=== PATIENT | male | born 1955 | race Caucasian/White ===

== ENCOUNTER 2016-09-24 07:03 | Emergency (ER) | payer BC ==
[2016-09-24 07:12] VITALS: BP 141/79
--- NOTE | 2016-09-24 07:21 | UC ---
Respiratory Complaint HPI - HPI Summary HPI Summary: cough off and on for 2 months, seen by PCP, treated with antibiotic and Robitussin, no relief, second visit prescribed Z-Pack, continues to cough. Right ear pain, "full" feeling. no fevers, some wheezing. had pneumonia last yr , doesnt feel like that. found left over albuterol inhaler that eh started using with relief temporarily. h/o sinus surgery adn uses saline rinses daily. ex-smoker. quit 1989. + h/o CAD. - History of Current Complaint Chief Complaint: UCGeneralIllness Stated Complaint: COUGH Time Seen by Provider: 09/24/16 07:19 - Allergies/Home Medications Allergies/Adverse Reactions: Allergies Allergy/AdvReac Type Severity Reaction Status Date / Time Amoxicillin [From Amoxil] Allergy Severe I FELT Verified 09/24/16 07:12 LIKE I WAS DYING Latex Allergy BANDAIDS - Verified 09/24/16 07:12 RASH Home Medications: Home Medications Nebivolol HCl [Bystolic] 5 mg PO DAILY 09/24/16 [History Confirmed 09/24/16] PMH/Surg Hx/FS Hx/Imm Hx Previously Healthy: Yes Cardiovascular History Of: Reports: Cardiac Disorders - a fib, Hypertension, Atrial Fibrillation, Deep Vein Thrombosis - aug 2013 Respiratory History Of: Reports: Pulmonary Embolism - DVT RIGHT LOWER LEG, 2 SMALL ONES IN THE LUNGS,2013 ON XARELTO Psychological History Of: Reports: Depression - on Cymbalta - Surgical History Surgical History: Yes Surgery Procedure, Year, and Place: HERNIA REPAIR 1982; sinus polyp removed~ 2011. bicep tendon repair right arm 2014 - Family History Known Family History: Positive: Cardiac Disease - Dad and brothers., Respiratory Disease - Dad with COPD. - Social History Alcohol Use: Occasionally Alcohol Amount: WEEKENDS Substance Use Type: None Substance Use Comment - Amount & Last Used: tramodol Smoking Status (MU): Former Smoker Type: Cigarettes Amount Used/How Often: 2 PPD / CURRENTLY CHEWING TOBACCO Length of Time of Smoking/Using Tobacco: 40 yrs Have You Smoked in the Last Year: No When Did the Patient Quit Smoking/Using Tobacco: 1989 - Immunization History Most Recent Influenza Vaccination: 2012 Most Recent Tetanus Shot: 2009 Most Recent Pneumonia Vaccination: never Review of Systems Constitutional: Negative Skin: Negative Eyes: Negative ENT: Ear Ache Respiratory: Cough Cardiovascular: Negative Gastrointestinal: Negative Genitourinary: Negative Motor: Negative Neurovascular: Negative Musculoskeletal: Negative Neurological: Negative Psychological: Negative All Other Systems Reviewed And Are Negative: Yes Physical Exam Triage Information Reviewed: Yes Appearance: Well-Appearing - no cough during encounter. very pleasant., No Pain Distress, Well-Nourished Vital Signs: Initial Vital Signs Temp 97.8 F 09/24/16 07:06 Pulse 92 09/24/16 07:06 Resp 18 09/24/16 07:06 BP 141/79 09/24/16 07:06 Pulse Ox 100 09/24/16 07:06 Vital Signs Reviewed: Yes Eyes: Positive: Conjunctiva Clear ENT: Positive: Pharynx normal, TMs normal. Negative: TM bulging, TM dull, TM red Dental Exam: Normal Neck exam: Normal Neck: Positive: Supple, Nontender, No Lymphadenopathy Respiratory: Positive: Chest non-tender, No respiratory distress, No accessory muscle use, Decreased breath sounds, Wheezing - right > left. Negative: Crackles, Rhonchi, Stridor Cardiovascular: Positive: No Murmur, Pulses Normal, Brisk Capillary Refill, Other: - irregularly, irregular Abdomen Description: Positive: Nontender, Soft Bowel Sounds: Positive: Present Musculoskeletal Exam: Normal Neurological Exam: Normal Psychological Exam: Normal Skin Exam: Normal UC Diagnostic Evaluation - Laboratory O2 Sat by Pulse Oximetry: 100 Respiratory Course/Dx - Course Course Of Treatment: CXR - NAD. We discusse risks of prednisone including but not limited to anxiety, agitation, insomnia, GI upset, elevated blood pressures and blood sugar readings, adrenal crisis and avascular necrosis of the hip. He has been on this before and agrees with meds. - Differential Dx/Diagnosis Differential Diagnosis/HQI/PQRI: Bronchitis, Other - pneumonia. copd Provider Diagnoses: Bronchitis Discharge - Discharge Plan Condition: Stable Disposition: HOME Prescriptions: Albuterol HFA INHALER* [Ventolin HFA Inhaler*] 2 puff INH Q4H PRN #1 mdi PRN Reason: Cough Methylprednisolone [Medrol Dosepak 4 MG*] 4 mg PO DAILY #1 artem Patient Education Materials: Acute Bronchitis (ED) Referrals: Glenn Hewitt MD [Primary Care Provider] - Additional Instructions: We discussed need for the albuterol; inhaler every 4-6 hrs as needed for cough until symptoms resolve. prednisone will also help the inflammation/restriction in your lungs that is causing the cough. Consideration to a breathing test to test your for COPD should be given by your PCP. I also recommend that you stop chewing tobacco as well.
--- NOTE | 2016-09-24 07:46 | RAD ---
HISTORY: Cough, wheezing COMPARISONS: October 28, 2014 VIEWS: 2: Frontal dual-energy and lateral views of the chest. FINDINGS: CARDIOMEDIASTINAL SILHOUETTE: The cardiomediastinal silhouette is normal. SEBAS: The sebas are normal. PLEURA: The costophrenic angles are sharp. No pleural abnormalities are noted. LUNG PARENCHYMA: The lungs are clear. ABDOMEN: The upper abdomen is clear. There is no subphrenic gas. BONES AND SOFT TISSUES: Degenerative changes are noted along the spine. OTHER: None. IMPRESSION: NO ACTIVE CARDIOPULMONARY DISEASE.
== END 2016-09-24 07:58 | disposition home or self-care (01) ==
LOC: UCCORT 07:03
DX: J40 Bronchitis, not specified as acute or chronic (principal); Z88.1 Allergy status to other antibiotic agents; I48.91 Unspecified atrial fibrillation; Z86.718 Personal history of other venous thrombosis and embolism; Z86.711 Personal history of pulmonary embolism; Z79.01 Long term (current) use of anticoagulants; I10 Essential (primary) hypertension; F32.9 Major depressive disorder, single episode, unspecified; F17.220 Nicotine dependence, chewing tobacco, uncomplicated
CPT/HCPCS: 71020; 99212; G0463

== ENCOUNTER 2017-12-03 10:22 | Emergency (ER) | payer BC ==
--- NOTE | 2017-12-03 10:45 | UC ---
General HPI - HPI Summary HPI Summary: Patient presents to urgent care reporting 2 days noticed at the end of his breathing he feels a "bubbly noise "in his breathing. Patient states he feels like there is congestion in his left lung. No shortness of breath. No fevers or chills. No chest pain. No nausea or vomiting. She was slight nonproductive cough. No rash. Patient does not have a history of tobacco use. Patient is lung disease. Patient does have a history of atrial fibrillation and pulmonary embolism. Patient is currently on daily Xarelto and has not missed any doses. Patient states his PE was diagnosed many years ago. 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 Patient states he had pneumonia several years ago but this feels different. Patient does not endorse any pain in his abdomen or his extremities. Patient does not have a history of CHF. Patient is not on any diuretic or hydrochlorothiazide. Pt with normal cardiac stress test in 2010 Patient's medications reviewed this visit. - History of Current Complaint Stated Complaint: CHEST HEAVINESS,CONGESTION Time Seen by Provider: 12/03/17 10:26 Hx Obtained From: Patient Onset/Duration: Gradual Onset Timing: Constant Onset Severity: Mild Current Severity: Mild - Allergy/Home Medications Allergies/Adverse Reactions: Allergies Allergy/AdvReac Type Severity Reaction Status Date / Time adhesive tape Allergy Rash Verified 12/03/17 10:38 amoxicillin Allergy See Comment Verified 12/03/17 10:38 latex Allergy Rash Verified 12/03/17 10:38 Home Medications: Home Medications Escitalopram Oxalate [Lexapro 10 mg] 10 mg PO DAILY 12/03/17 [History Confirmed 12/03/17] Hydroxychloroquine TAB* [Plaquenil TAB*] 200 mg PO DAILY 12/03/17 [History Confirmed 12/03/17] PMH/Surg Hx/FS Hx/Imm Hx Previously Healthy: Yes Endocrine History: Dyslipidemia Cardiovascular History: Hypertension, Atrial Fibrillation - Surgical History Surgical History: Yes Surgery Procedure, Year, and Place: HERNIA REPAIR 1982; sinus polyp removed~ 2011. bicep tendon repair right arm 2014 - Family History Known Family History: Positive: Cardiac Disease - Dad and brothers., Respiratory Disease - Dad with COPD. - Social History Occupation: Employed Full-time Lives: With Family Alcohol Use: Occasionally Alcohol Amount: WEEKENDS Substance Use Type: None Substance Use Comment - Amount & Last Used: tramodol Smoking Status (MU): Former Smoker Type: Cigarettes Amount Used/How Often: 2 PPD / CURRENTLY CHEWING TOBACCO Length of Time of Smoking/Using Tobacco: 40 yrs Have You Smoked in the Last Year: No When Did the Patient Quit Smoking/Using Tobacco: 1989 - Immunization History Most Recent Influenza Vaccination: 2012 Most Recent Tetanus Shot: 2009 Most Recent Pneumonia Vaccination: never Review of Systems Constitutional: Negative Skin: Negative Eyes: Negative Respiratory: Cough, Other - wheeze All Other Systems Reviewed And Are Negative: Yes Physical Exam - Summary Physical Exam Summary: Vital Signs Reviewed: Yes Eyes: Conjunctiva Clear, BILLY. EOM intact and full ENT: Hearing grossly normal TM x 2 clear, mmoist, uvula midline, no exudate, no erythema Neck: Positive: Supple Respiratory: Positive: No respiratory distress, No accessory muscle use + BS throughout pt with end exp wheeze left Cardiovascular: RRR nl s1, s2 no m/r CBT <2 sec Musculoskeletal Exam: JHAVERI x 4 without difficulty Strength Intact, ROM Intact, Og Neurological: Positive: Alert, Other: - + sensation throughout Psychological: Positive: Normal Response To Family Skin: Positive: no rash,, no ecchymosis Triage Information Reviewed: Yes Diagnostics - Radiology No standard instances Xray Interpretation: Positive (See Comments) - Patient Name: WILLIAM JACQUES Medical Record#: [id number] Ordering Physician: Pamela Bello MD Acct.#: [id number] : 1955 Age: 62 Sex: M Location: [facility] Exam Date: 12/03/17 1051 ADM Status: REG ER Order Information: CHEST PA & LAT 2 VWS Accession Number: [id number] CPT: 17143 INDICATION: LEFT chest discomfort for several days. Congestion. History of atrial fibrillation. Former tobacco use. COMPARISON: September 24, 2016 TECHNIQUE: Dual energy PA and routine lateral views of the chest were obtained. REPORT: Alveolar consolidation at the LEFT upper lobe new compared with the prior exam. Elevated lung volumes. Negative for pleural effusion or pneumothorax. The heart, pulmonary vasculature, and mediastinal contours are unremarkable. IMPRESSION: LEFT upper lobe airspace consolidation most suspicious for pneumonia given the clinical context however interval follow -up after therapy warranted to assess for resolution and exclude an underlying mass lesion. If the clinical context is not suspicious for pneumonia then consider contrast-enhanced chest CT to assess for LEFT upper lobe mass at this time. < Electronically signed by Blayne Farmer MD in [place]> 12/03/17 1112 Dictated By: Blayne Farmer MD Dictated Date/Time: 12/03/17 1112 Transcribed Date/Time: 08/21 1109 Copy to: CC:Pamela Bello MD; Glenn Hewitt MD Imaging - [facility] Imaging - [facility] Imaging - [facility] [address] [place] [id number] [address] [address] ph ([phone]) ph [phone]) ph ([phone]) 1 of 1 Radiology Interpretation Completed By: Radiologist Re-Evaluation - Re-Evaluation First Eval Re-Evaluation Time: 11:24 Change: Improved - Pt states improved with neb wheezing resolved + BS throughout wheeze resolved reviewed CXR with pt - alexa tx for pna, abx, mdi with spacer recheck pcp for reimaging return precautions pt in agreement with plan Course/Dx - Course Course Of Treatment: Patient with 2 days of progressive and expiratory wheeze. Patient states feels when he calls a "pop" in his lungs. Patient denies any other complaints. On exam patient with an respiratory wheezing. We'll check a chest x-ray. If evidence of CHF with respiratory further evaluation. If no CHF will give DuoNeb and reassessed the patient comfortable and agreeable with plan. - Differential Dx - Multi-Symptom Provider Diagnoses: MYNOR PNA Discharge - Sign-Out/Discharge Documenting (check all that apply): Discharge/Admit/Transfer - Discharge Plan Condition: Stable Disposition: HOME Prescriptions: Albuterol HFA INHALER* [Ventolin HFA Inhaler*] 1 puff INH Q4H PRN #1 mdi PRN Reason: wheeze DOXYcycline CAP(*) [DOXYcycline 100MG CAP(*)] 100 mg PO BID #20 cap Spacer/Holding Chamber (NF) [Easivent CHAMBER (NF)] 1 mis PO Q4HR #1 mis Patient Education Materials: Pneumonia (ED) Referrals: Glenn Hewitt MD [Primary Care Provider] - Additional Instructions: - Take antibiotics exactly as prescribed until gone -Use your albuterol puffer - 2 puffs ever 4 hours for the next 2 days - then every 4 hours as needed -Stay well hydrated - avoid excess caffeine and all alcohol -These infections are spread by oral secretions. Do not share eating or drinking utensils. Frequent hand washing is important. Clean items that may get your secretions on them such as cell phones, ipads, computer mouse, television remotes. Once you have been on antbiotics for 2 days, change your pillowcase and your toothbrush - eat regular, healthy meals -Contact your doctor to arrange a follow-up appointment this week. Call your doctor, return here or go to the emergency department with any questions or concerns. As discussed, you should have a follow-up chest radiograph after you complete your antibiotics to make sure your chest xray has improved. - Billing Disposition and Condition Condition: STABLE Disposition: HOME
[2017-12-03 10:51] VITALS: BP 144/94
[2017-12-03] MEDS ORDERED: Albuterol/Ipratropium NEB.SOL* Albuterol 2.5 MG/Ipratropium 0.5 MG 3 ML INH ONE (10:51)
--- NOTE | 2017-12-03 11:15 | RAD ---
INDICATION: LEFT chest discomfort for several days. Congestion. History of atrial fibrillation. Former tobacco use. COMPARISON: September 24, 2016 TECHNIQUE: Dual energy PA and routine lateral views of the chest were obtained. REPORT: Alveolar consolidation at the LEFT upper lobe new compared with the prior exam. Elevated lung volumes. Negative for pleural effusion or pneumothorax. The heart, pulmonary vasculature, and mediastinal contours are unremarkable. IMPRESSION: LEFT upper lobe airspace consolidation most suspicious for pneumonia given the clinical context however interval follow-up after therapy warranted to assess for resolution and exclude an underlying mass lesion. If the clinical context is not suspicious for pneumonia then consider contrast-enhanced chest CT to assess for LEFT upper lobe mass at this time.
== END 2017-12-03 11:51 | disposition home or self-care (01) ==
LOC: UCCORT 10:22
DX: J18.9 Pneumonia, unspecified organism (principal); I48.91 Unspecified atrial fibrillation; I26.99 Other pulmonary embolism without acute cor pulmonale; I10 Essential (primary) hypertension; Z88.0 Allergy status to penicillin; Z91.09 Other allergy status, other than to drugs and biological substances; Z79.01 Long term (current) use of anticoagulants; Z91.040 Latex allergy status; Z87.891 Personal history of nicotine dependence
CPT/HCPCS: 71046; 93005; 99212; A9270-GY; G0463

== ENCOUNTER 2018-12-18 09:00 | Emergency (ER) | payer BC ==
--- OUTSIDE RECORDS SUMMARY | 2018-12-18 09:17 | XMS REPORT | Continuity of Care Document ---
:1955 External Reference #:[id number] Author Name Lawanda He Care Team Providers Name Role Phone Glenn Hewitt MD Primary Care Physician Unavailable Payers Date Identification Numbers Payment Provider Subscriber Effective: 2011 Policy Number: [id number] [employer]ets Lillian Moreno PayID: [id number] [address] [address] [place] [address] Problems Active Problems Provider Date Displacement of lumbar intervertebral disc Volodymyr Menezes M.D. Onset: without myelopathy Sciatica Volodymyr Menezes M.D. Onset: 07/18/2013 Nasal polyp Papi Long M.D. Onset: 08/30/2013 Chronic maxillary sinusitis Papi Long M.D. Onset: 08/30/2013 Spinal stenosis of lumbar region Ronan Shea M.D. Onset: 12/15/2016 Idiopathic peripheral neuropathy Ronan Shea M.D. 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 Cigarette Use Quit - Age 34 ETOH Use Denies alcohol use Recreational Drug Use Denies Drug Use Tobacco Use Start: Unknown End: Patient is a former smoker Unknown Tobacco Use Start: Unknown Chews tobacco Smoking Status Reviewed: 11/28/18 Chews tobacco Exercise Type/Frequency Does not exercise Allergies, Adverse Reactions, Alerts Active Allergies Reaction Severity Comments Date Amoxicillin 07/18/2013 Augmentin 07/18/2013 Neurontin odd feeling 12/15/2016 Inactive Allergies NKDA 09/02/2009 Medications Active Medications SIG Qnty Indications Ordering Date Provider Hydroxychloroquine Take 2 Tablets 180tabs Papi Geraldo, 12/29/2017 Sulfate By Mouth Every M.D. 200mg Tablets Day Ongoing Capsaicin apply twice 60gm Papi Chow, 07/05/2017 0.025% Cream daily for M.D. local pain Multivitamins 1 capsule 30caps Unknown Capsules beverly;y Zolpidem Tartrate 1/2-1 tab po 20tabs Unknown 10mg Tablets qhs prn Xarelto 1 by mouth qd Unknown 20mg Tablets Atorvastatin Calcium 1 by mouth Unknown 10mg every day Tablets Co Q 10 1 by mouth Unknown 10mg Capsules every day Tramadol HCL 1-2 tablets Unknown 50mg Tablets every 6 hours as needed Bystolic Unknown 20mg Tablets Ultra Move Free Unknown Fluticasone Propionate Niziol, MD Glenn 50mcg/Act Suspension History Medications Plaquenil 2 by mouth daily 60tabs Papi Chow, 07/27/2017 - 200mg Tablets ongoing M.D. 12/29/2017 Doxycycline Hyclate 1 tab by mouth 8caps Francisco Toledo, 06/21/2017 - 100mg twice a day M.D. 07/05/2017 Capsules Percocet 1-2 by mouth 10tabs Francisco Toledo, 09/16/2015 - 5-325mg Tablets every 4-6 hours M.D. 12/12/2016 as needed for pain Doxycycline Hyclate 1 tab by mouth 28caps Francisco Toledo, 09/16/2015 - 100mg twice a day M.D. 12/13/2016 Capsules Doxycycline Hyclate 1 tab by mouth 20tabs Unknown 02/25/2015 - 100mg twice a day for 03/04/2015 Tablets 10 days Doxycycline Hyclate 1 tab by mouth 20caps Francisco Toledo, 02/25/2015 - 100mg twice a day M.D. 03/04/2015 Capsules Doxycycline Hyclate 1 tab by mouth 20caps Francisco Toledo, 07/16/2014 - 100mg twice a day M.DJanuary 02/24/2015 Capsules Medrol medrol dosepack 1pack Francisco Paris, 07/16/2014 - 4mg Tablets as directed M.D. 02/24/2015 Azelastine HCL 2 sprays to each 1Month Francisco Toledo, 02/12/2014 - nostril twice a M.D. 12/12/2016 137mcg/[place] Solution day Lyrica 3 - 6 caps by 180capbernabe Medina 09/24/2013 - 50mg Capsules mouth every night Bindu Coombs 12/13/2016 as directed [facility] Papi 08/30/2013 - 5mg Tablets 7 days, 20 mg for Matthewinger, 09/11/2013 4 days, 10 mg M.D. for 4 days, then 5 mg a day Doxycycline 1 po bid with 28caps 471.0 Papi 08/30/2013 - Monohydrate food and [facility] 09/15[facility]2013 100mg sunlight M.D. Capsules Lyrica 3 - 6 caps by 180savage Medina 08/06/2013 - 50mg Capsules mouth every night Bindu Coombs 08/30/2013 as directed Ativan 1/2-1 tab by 30taguicho Medina 05/02/2013 - 1mg Tablets mouth as needed Bindu Coombs 07/17/2013 Cymbalta 1-2 tab by mouth 180savage Medina 05/02/2013 - 30mg Caps DR every day as Bindu Coombs 08/21/2013 Part directed Quetiapine Fumarate 3-4 tabs po hs as 120taguicho Medina 03/26/2013 - 25mg directed Bindu Coombs 05/02/2013 Tablets Metoprolol Succinate 1 po qd 90tabs Asherlast Pierson 01/01/2013 - ER Bindu Stoner, 12/13/2016 100mg Tablets ER 24HR FACC, FASNC Verapamil HCL CR 1 po qd 90tabs Asher Pierson 01/01/2013 - 240mg Bindu Stoner, 12/13/2016 Tablets ER FACC, FASNC Ofloxacin 4 drops to 15ml Francisco Toledo, 08/29/2012 - 0.3% Solution affected ear M.DJanuary 07/17/2013 twice a day for 5 days Medrol Dosepak take as directed 1phsaryn Toledo, 06/13/2012 - 4mg M.DJanuary 07/11/2012 Tablets Fluticasone Propionate 2 puffs each 1month Francisco Toledo, 06/13/2012 - nostril daily M.DJanuary 07/17/2013 50mcg/Act Suspension Prednisone one p.o. once a 10days 473.0 [facility] 09/27/2011 - 20mg Tablets day in a.m. x10 Bindu Mistry 11/23/2011 days Vicodin 2 p.o. q.6 h. 30tabs 473.0 [facility] 09/27/2011 - 5-500mg Tablets p.r.n. Bindu Mistry 11/23/2011 Gabapentin 1 po qid and 120capbernabe Araujo 02/24/2011 - 300mg Capsules increase Bindu Menezes 08/29/2012 gradually up to 6 capsules per day if needed to control symptoms Fluticasone Propionate 2 puffs each 1month Francisco Toledo 12/01/2010 - nostril daily Vira.Aneta 08/29/2012 50mcg/Act Suspension Gabapentin 1 po qhs to start 90capbernabe Araujo 11/25/2010 - 100mg Capsules and may increase Bindu Menezes 02/24/2011 as tolerated to 2 po qhs then 1 po qam and 2 po hs, gradually up to 3 tid prn pain Aspir-81 1 po qd Francisco Toledo 01/13/2010 - 81mg Tablets DR Ruano 09/01/2013 Tramadol HCL qid prn 120tabs Francisco Toledo 01/13/2010 - 50mg Tablets Vira.DJanuary 07/17/2013 Clarithromycin Niziol, - 500mg MD Glenn 03/29/2018 Tablets Ultram one tablet every Unknown - 50mg Tablets 8 hours as needed 12/14/2016 for pain orally Lyrica 1 by mouth twice Unknown - 25mg Capsules a day 07/27/2017 Cymbalta 1 by mouth every Unknown - 60mg Caps DR day- will stop 12/15/2016 Part 12/18/16 Montelukast Sodium 1 po qd 90tabs Unknown - 10mg 12/13/2016 Tablets Nasonex 2 sprays to each 1units Unknown - 50mcg/Act nostril once 12/13/2016 Suspension daily Verapamil HCL ER 1 po qd 30caps Unknown - 240mg 11/25/2015 Caps ER 24HR Warfarin Sodium 1 tab by mouth 90tabs Unknown - 6mg every day as 11/25/2015 Tablets directed Biaxin 1 po bid 28tabs Unknown - 500mg Tablets 09/18/2013 Bactrim DS 1 po bid for 7 14tabs Francisco Toledo, - 800-160mg days M.D. 07/17/2013 Tablets Mucinex bid prn 30tabs Unknown - 600mg Tablets ER 07/17/2013 12HR Amoxicillin 2 bid for 10 days 40caps Unknown - 500mg 08/29/2012 Capsules Verapamil HCL CR Unknown - 240mg 01/01/2013 Prednisone weaning Unknown - 20mg 01/13/2010 dose Hydrocodone Unknown - 07/17/2013 Metoprolol Unknown - 01/01/2013 Warfarin Sodium Unknown - 01/13/2010 Cefdinir Unknown - 01/13/2010 Immunizations CPT Code Status Date Vaccine Reaction Lot # [id number] Given 03/29/2018 Influenza Virus Vaccine, No immediate reaction [id number] Quadrivalent, Split, noted Preservative Free Vital Signs Date Vital Result Comment 11/28/2018 8:52am Height 69 inches 5'9" Weight 212.50 lb Heart Rate 97 /min BP Systolic 128 mmHg BP Diastolic 82 mmHg Pain Level 1 O2 % BldC Oximetry 98 % BMI (Body Mass Index) 31.4 kg/m2 03/29/2018 8:58am Height 69 inches 5'9" Weight 205.00 lb Heart Rate 78 /min BP Systolic Sitting 126 mmHg BP Diastolic Sitting 82 mmHg Respiratory Rate 14 /min Pain Level 2 BMI (Body Mass Index) 30.3 kg/m2 09/27/2017 9:34am Height 69 inches 5'9" Weight 210.00 lb Heart Rate 80 /min BP Systolic Sitting 148 mmHg BP Diastolic Sitting 96 mmHg Respiratory Rate 14 /min Pain Level 2 BMI (Body Mass Index) 31.0 kg/m2 07/27/2017 4:22pm Height 69 inches 5'9" Weight 220.00 lb Heart Rate 82 /min BP Systolic Sitting 144 mmHg BP Diastolic Sitting 99 mmHg Respiratory Rate 14 /min Pain Level 5 BMI (Body Mass Index) 32.5 kg/m2 07/05/2017 9:56am Height 69 inches 5'9" Weight 217.00 lb Heart Rate 82 /min BP Systolic Sitting 142 mmHg BP Diastolic Sitting 97 mmHg Respiratory Rate 14 /min Pain Level 4 BMI (Body Mass Index) 32.0 kg/m2 06/21/2017 2:59pm Height 69 inches 5'9" Weight 200.00 lb Heart Rate 72 /min BP Systolic Sitting 140 mmHg BP Diastolic Sitting 72 mmHg Respiratory Rate 12 /min Pain Level 0 BMI (Body Mass Index) 29.5 kg/m2 12/15/2016 2:33pm Height 69 inches 5'9" Weight 215.00 lb Heart Rate 85 /min BP Systolic 122 mmHg BP Diastolic 84 mmHg Respiratory Rate 17 /min Pain Level 5 O2 % BldC Oximetry 98 % Ra BMI (Body Mass Index) 31.7 kg/m2 04/27/2016 2:52pm Height 69 inches 5'9" Weight 220.00 lb BP Systolic 130 mmHg BP Diastolic 74 mmHg BMI (Body Mass Index) 32.5 kg/m2 11/26/2015 8:04am Height 69 inches 5'9" Weight 220.00 lb Heart Rate 80 /min BP Systolic Sitting 130 mmHg BP Diastolic Sitting 84 mmHg BMI (Body Mass Index) 32.5 kg/m2 09/30/2015 2:02pm Heart Rate 72 /min BP Systolic Sitting 122 mmHg BP Diastolic Sitting 82 mmHg 09/16/2015 1:37pm Heart Rate 76 /min BP Systolic Sitting 128 mmHg BP Diastolic Sitting 88 mmHg 09/02/2015 1:34pm Heart Rate 78 /min BP Systolic Sitting 128 mmHg BP Diastolic Sitting 88 mmHg 02/25/2015 1:58pm Heart Rate 78 /min BP Systolic Sitting 124 mmHg BP Diastolic Sitting 80 mmHg 07/16/2014 3:11pm Heart Rate 76 /min BP Systolic Sitting 122 mmHg BP Diastolic Sitting 84 mmHg Body Temperature 98.6 F 04/30/2014 1:08pm Heart Rate 88 /min BP Systolic Sitting 128 mmHg BP Diastolic Sitting 88 mmHg 02/12/2014 1:05pm Heart Rate 88 /min BP Systolic Sitting 140 mmHg BP Diastolic Sitting 90 mmHg 10/09/2013 3:42pm Heart Rate 78 /min BP Systolic Sitting 120 mmHg BP Diastolic Sitting 82 mmHg Body Temperature 99.8 F 08/30/2013 11:13am Weight 226.00 lb Heart Rate 88 /min BP Systolic Sitting 132 mmHg BP Diastolic Sitting 80 mmHg 09/02/2009 2:26pm Heart Rate 88 /min BP Systolic Sitting 120 mmHg BP Diastolic Sitting 80 mmHg Results Test Date Facility Test Result H/L Range Note Laboratory test 03/29/2018 [facility] Erythrocyte Sed <pending> finding [address] [place] [address] [phone] C Reactive Protein <pending> Laboratory test 03/10/2018 [facility] Erythrocyte Sed 0 mm/Hr N 0-20 [address] [place] [address] [phone] C Reactive Protein 1.19 mg/L N <8.01 2 CBC Auto Diff 03/10/2018 [facility] White Blood 8.6 10^3/uL N 3.5-10.[address] [place] [address] [phone] Red Blood Count 4.66 10^6/uL N 4.00-5.40 Hemoglobin 14.4 g/dL N 14.0-18.0 Hematocrit 42 % N 42-52 Mean Corpuscular Volume 91 fL N 80-94 Mean Corpuscular Hemoglobin 31 pg N 27-31 Mean Corpuscular HGB Conc 34 g/dL N 31-36 Red Cell Distribution Width 14 % N 10.5-15 Platelet Count 237 10^3/uL N 150-450 Mean Platelet Volume 7.4 um3 N 7.4-10.4 Abs Neutrophils 5.2 10^3/uL N 1.5-7.7 Abs Lymphocytes 2.1 10^3/uL N 1.0-4.8 Abs Monocytes 0.8 10^3/uL N 0-0.8 Abs Eosinophils 0.5 10^3/uL N 0-0.6 Abs Basophils 0.1 10^3/uL N 0-0.2 Abs Nucleated RBC 0.1 10^3/uL Granulocyte % 60.3 % N 38-83 Lymphocyte % 24.0 % Low 25-47 Monocyte % 8.9 % High 0-7 Eosinophil % 6.1 % High 0-6 Basophil % 0.7 % N 0-2 Nucleated Red Blood Cells % 0.8 Comp Metabolic Panel 03/10/2018 [facility] Sodium 142 mmol/L N 135-[address] [place] [address] [phone] Potassium 4.2 mmol/L N 3.5-5.0 Chloride 106 mmol/L N 101-111 Co2 Carbon Dioxide 30 mmol/L N 22-32 Anion Gap 6 mmol/L N 2-11 Glucose 102 mg/dL High 70-100 Blood Urea Nitrogen 12 mg/dL N 6-24 Creatinine 0.94 mg/dL N 0.67-1.17 BUN/Creatinine Ratio 12.8 N 8-20 Calcium 9.2 mg/dL N 8.6-10.3 Total Protein 6.4 g/dL N 6.4-8.9 Albumin 4.3 g/dL N 3.2-5.2 Globulin 2.1 g/dL N 2-4 Albumin/Globulin Ratio 2.0 N 1-3 Total Bilirubin 0.90 mg/dL N 0.2-1.0 Alkaline Phosphatase 44 U/L N 34-104 Alt 29 U/L N 7-52 Ast 23 U/L N 13-39 Egfr Non- 81.9 >60 Egfr 99.1 >60 3 Laboratory test 09/23/2017 [facility] Erythrocyte Sed 0 mm/Hr N 0-20 [address] [place] [address] [phone] C Reactive Protein < 1.00 mg/L N < 5.00 5 CBC Auto Diff 09/23/2017 [facility] White Blood 6.9 10^3/uL N 3.5-10.[address] [place] [address] [phone] Red Blood Count 4.65 10^6/uL N 4.0-5.4 Hemoglobin 14.6 g/dL N 14.0-18.0 Hematocrit 42 % N 42-52 Mean Corpuscular Volume 91 fL N 80-94 Mean Corpuscular Hemoglobin 31 pg N 27-31 Mean Corpuscular HGB Conc 35 g/dL N 31-36 Red Cell Distribution Width 13 % N 10.5-15 Platelet Count 230 10^3/uL N 150-450 Mean Platelet Volume 8.1 um3 N 7.4-10.4 Abs Neutrophils 4.4 10^3/uL N 1.5-7.7 Abs Lymphocytes 1.4 10^3/uL N 1.0-4.8 Abs Monocytes 0.6 10^3/uL N 0-0.8 Abs Eosinophils 0.3 10^3/uL N 0-0.6 Abs Basophils 0.1 10^3/uL N 0-0.2 Abs Nucleated RBC 0 10^3/uL Granulocyte % 64.4 % N 38-83 Lymphocyte % 20.7 % Low 25-47 Monocyte % 8.0 % High 0-7 Eosinophil % 4.8 % N 0-6 Basophil % 2.1 % High 0-2 Nucleated Red Blood Cells % 0 Comp Metabolic Panel 09/23/2017 [facility] Sodium 139 mmol/L N 133-[address] [place] [id number] [phone] Potassium 4.0 mmol/L N 3.5-5.0 Chloride 103 mmol/L N 101-111 Co2 Carbon Dioxide 30 mmol/L N 22-32 Anion Gap 6 mmol/L N 2-11 Glucose 106 mg/dL High 70-100 Blood Urea Nitrogen 12 mg/dL N 6-24 Creatinine 1.06 mg/dL N 0.67-1.17 BUN/Creatinine Ratio 11.3 N 8-20 Calcium 9.4 mg/dL N 8.6-10.3 Total Protein 6.5 g/dL N 6.4-8.9 Albumin 4.5 g/dL N 3.2-5.2 Globulin 2.0 g/dL N 2-4 Albumin/Globulin Ratio 2.3 N 1-3 Total Bilirubin 0.80 mg/dL N 0.2-1.0 Alkaline Phosphatase 37 U/L N 34-104 Alt 26 U/L N 7-52 Ast 19 U/L N 13-39 Egfr Non- 71.3 >60 Egfr 91.7 >60 6 Cardiolipin 07/05/2017 [facility] Phospholipid Ab < 9.4 MPL 7 Igg/Igm IgM, [place] [address] [phone] Phospholipid Ab IgG < 9.4 GPL 8 Jerica Igg AB Reflex 07/05/2017 [facility] SS-A/Ro Antibody <0.2 U 9 [place] [address] [phone] SS-B/La Antibody <0.2 U 10 Sm (Grewal) IgG Antibody <0.2 U 11 U1-nRNP Antibody <0.2 U 12 Scl-70 (Scleroderma) Antibody <0.2 U 13 Aleida-1 Antibody <0.2 U 14 Laboratory test 07/05/2017 [facility] TSH (Thyroid 1.79 mcIU/mL N 0.34-5.60 finding Stim Horm) [place] [address] [phone] Hla B27 07/05/2017 [facility] Hla B27 Negative 15 [place] [address] [phone] Hla B27 Interp See Comment 16 Vitamin B12 And 07/05/2017 [facility] Vitamin B12 629 pg/mL N 180-914 17 [place] [address] [phone] Folic Acid (Folate) > 20.00 ng/mL >3.99 Immunoglobulins 07/05/2017 [facility] Immunoglobulin G 722 Abnormal 767 - 18 Serum Quant [facility] mg/dL [address] [place] [address] [phone] Immunoglobulin M 89 mg/dL 37 - 286 Immunoglobulin A 232 mg/dL 61 - 356 Anca AB Ser If 07/05/2017 [facility] C-[place] [address] [phone] P-Anca Negative Negative 19 Laboratory test 07/05/2017 [facility] Rheumatoid Factor <15 IU/ mL <15 20 [place] [address] [phone] Erythrocyte Sed Rate 7 mm/Hr N 0-20 C Reactive Protein < 1.00 mg/L N < 5.00 21 Uric Acid 5.5 mg/dL N 4.4-7.6 Connective Tissue 07/05/2017 [facility] Anti-Nuclear 1.6 U High [address] [place] [address] [phone] Cyclic Citrullinated Peptide <15.6 U 23 Interpretation See Comment 24 Laboratory test 07/05/2017 [facility] Angiotensin 38 U/L 8 - 53 [address] [place] [address] [phone] CBC Auto Diff 08/12/2013 [facility] White Blood Count 10.3 4.8-10. [address] 10^3/uL 8 [place] [address] [phone] Red Blood Count 4.77 10^6/uL 4.0-5.4 Hemoglobin 14.1 g/dL 14.0-18.0 Hematocrit 44 % 42-52 Mean Corpuscular Volume 93 fL 80-94 Mean Corpuscular Hemoglobin 30 pg 27-31 Mean Corpuscular HGB Conc 32 g/dL 31-36 Red Cell Distribution Width 14 % 10.5-15 Platelet Count 216 10^3/uL 150-450 Mean Platelet Volume 8 um3 7.4-10.4 Abs Neutrophils 6.8 10^3/uL 1.5-7.7 Abs Lymphocytes 2.2 10^3/uL 1.0-4.8 Abs Monocytes 0.8 10^3/uL 0-0.8 Abs Eosinophils 0.5 10^3/uL 0-0.6 Abs Basophils 0.1 10^3/uL 0-0.2 Abs Nucleated RBC 0.01 10^3/uL Granulocyte % 66.1 % 38-83 Lymphocyte % 21.3 % Low 25-47 Monocyte % 7.4 % 1-9 Eosinophil % 4.7 % 0-6 Basophil % 0.5 % 0-2 Nucleated Red Blood Cells % 0.1 Comp Metabolic Panel 08/12/2013 [facility] Sodium 136 mmol/L 133-[address] [place] [address] [phone] Potassium 4.0 mmol/L 3.5-5.0 Chloride 102 mmol/L 101-111 Co2 Carbon Dioxide 27.0 mmol/L 22-32 Anion Gap 7.0 mmol/L 2-11 Glucose 84 mg/dL 70-100 Blood Urea Nitrogen 17 mg/dL 6-24 Creatinine 0.90 mg/dL 0.50-1.40 BUN/Creatinine Ratio 18.9 8-20 Calcium 9.2 mg/dL 8.1-9.9 Total Protein 7.0 g/dL 6.2-8.1 Albumin 4.2 g/dL 3.6-5.4 Globulin 2.8 g/dL 2-4 Albumin/Globulin Ratio 1.5 1-3 Total Bilirubin 1.0 mg/dL 0.4-1.5 Alkaline Phosphatase 49 U/L 30-110 Alt 29 U/L 14-54 Ast 23 U/L 12-42 Egfr Non- 87.3 >60 Egfr 112.3 >60 26 Laboratory test 03/26/2013 [facility] Vitamin B12 602 pg/mL 180-074 [facility] [address] [place] [address] [phone] Folate > 24.8 ng/mL High 2-16 C Reactive Protein < 0.5 mg/dL Less than 0.5 Shelby (Anti-Nuclear AB) Screen Negative Negative 27 1 Please check labs 2 days before follow up 2 Please check labs 2 days before follow up 3 Because ethnic data is not always readily available, this report includes an eGFR for both -Americans and non- Americans. The National Kidney Disease Education Program (NKDEP) does not endorse the use of the MDRD equation for patients that are not between the ages of 18 and 70, are , have extremes of body size, muscle mass, or nutritional status, or are non- or non-. According to the National Kidney Foundation, irrespective of diagnosis, the stage of the disease is based on the level of kidney function: Stage Description GFR(mL/min/1.73 m(2)) 1 Kidney damage with normal or decreased GFR 90 2 Kidney damage with mild decrease in GFR 60-89 3 Moderate decrease in GFR 30-59 4 Severe decrease in GFR 15-29 5 Kidney failure <15 (or dialysis) 4 Please check labs 2 days before the visit 5 Acute inflammation: >10.00 6 Because ethnic data is not always readily available, this report includes an eGFR for both -Americans and non- Americans. The National Kidney Disease Education Program (NKDEP) does not endorse the use of the MDRD equation for patients that are not between the ages of 18 and 70, are , have extremes of body size, muscle mass, or nutritional status, or are non- or non-. According to the National Kidney Foundation, irrespective of diagnosis, the stage of the disease is based on the level of kidney function: Stage Description GFR(mL/min/1.73 m(2)) 1 Kidney damage with normal or decreased GFR 90 2 Kidney damage with mild decrease in GFR 60-89 3 Moderate decrease in GFR 30-59 4 Severe decrease in GFR 15-29 5 Kidney failure <15 (or dialysis) 7 REFERENCE VALUE <15.0 (Negative) 8 REFERENCE VALUE <15.0 (Negative) Test Performed by: [address] [address] 9 REFERENCE VALUE <1.0 (Negative) 10 REFERENCE VALUE <1.0 (Negative) 11 REFERENCE VALUE <1.0 (Negative) 12 REFERENCE VALUE <1.0 (Negative) 13 REFERENCE VALUE <1.0 (Negative) 14 REFERENCE VALUE <1.0 (Negative) Test Performed by: [facility] [place] [address] 15 REFERENCE VALUE Not Applicable 16 RESULT: HLA-B27 antigen was not detected. ADDITIONAL INFORMATION Method: Flow Cytometry Performing Laboratory CLIA# [id number] Test Performed by: [place] [address] 17 Normal Range 180 to 914 Indeterminate Range 145 to 180 Deficient Range <145 18 Test Performed by: [place] [address] 19 Negative for cANCA and pANCA patterns by immunofluorescence. ADDITIONAL INFORMATION This test was developed and its performance characteristics determined by [facility] in a manner consistent with CLIA requirements. This test has not been cleared or approved by the U.S. Food and Drug Administration. Test Performed by: [place] [address] 20 Test Performed by: [place] [address] 21 Acute inflammation: >10.00 22 Interpretation: Weak Positive (1.1-2.9) REFERENCE VALUE <=1.0 (Negative) 23 REFERENCE VALUE <20.0 (Negative) 24 Tests for antibodies to dsDNA and JERICA antigens are not performed automatically unless the SHELBY result is > or= 3.0 U. Studies performed at [facility] indicate that positive SHELBY results <3.0 U are rarely accompanied by positive second order tests. Test Performed by: [place] [address] [place] [address] 25 Test Performed by: [place] [address] [place] [address] 26 Because ethnic data is not always readily available, this report includes an eGFR for both -Americans and non- Americans. The National Kidney Disease Education Program (NKDEP) does not endorse the use of the MDRD equation for patients that are not between the ages of 18 and 70, are , have extremes of body size, muscle mass, or nutritional status, or are non- or non-. According to the National Kidney Foundation, irrespective of diagnosis, the stage of the disease is based on the level of kidney function: Stage Description GFR(mL/min/1.73 m(2)) 1 Kidney damage with normal or decreased GFR 90 2 Kidney damage with mild decrease in GFR 60-89 3 Moderate decrease in GFR 30-59 4 Severe decrease in GFR 15-29 5 Kidney failure <15 (or dialysis) 27 @Sample frozen by [id number] at 2009 on 03/26/13. Procedures Date Code Description Status 06/21/2017 12698 Nasal Endoscopy, Diagnostic Completed 09/30/2015 14885 Nasal Endoscopy, Diagnostic Completed 09/23/2015 51826 N/ Endo/W/Max Antro Exc Polyp Completed 02/12/2014 49233 Tympanometry Completed 08/30/2013 40516 Nasal Endoscopy, Diagnostic Completed 05/01/2013 72027 Polysomnography Sleep Staging 4+ Parameters Completed 11/06/2012 26977 ECHO Transthoracic, Real-Time 2D With Doppler And Color Completed Flow 08/29/2012 25872 Myringotomy W/Tube, OS Completed 07/11/2012 46668 Tympanometry Completed 11/23/2011 30134 Nasal Endoscopy, Diagnostic Completed 11/16/2011 60374 N/ Endo/W/Max Antro Exc Polyp Completed 11/24/2010 92585 Nasal Endoscopy, Diagnostic Completed 01/13/2010 58660 Nasal Endoscopy, Diagnostic Completed 09/02/2009 75144 Nasal Endoscopy, Diagnostic Completed Encounters Type Date Location Provider Dx Diagnosis Office Visit 03/29/2018 Rheumatology Erma May Encounter for 9:00a Services Of [facility] Ruano immunization M19.049 Primary osteoarthritis, unspecified hand Z79.899 Other adjunct faculty for medical terminology (current) drug therapy M06.4 Inflammatory polyarthropathy Office Visit 09/27/2017 Rheumatology Papi M06.4 Inflammatory 9:20a Services Of Jennifer Chow M.D. polyarthropathy M19.049 Primary osteoarthritis, unspecified hand Z79.899 Other adjunct faculty for medical terminology (current) drug therapy M54.2 Cervicalgia Office Visit 07/27/2017 Rheumatology Papi M06.4 Inflammatory 4:20p Services Of [facility] Chow M.D. polyarthropathy D84.9 Immunodeficiency, unspecified Z79.899 Other snf (current) drug therapy M19.049 Primary osteoarthritis, unspecified hand Office Visit 07/05/2017 Rheumatology Papi M06.4 Inflammatory 10:00a Services Of [facility] Chow M.D. polyarthropathy J32.0 Chronic maxillary sinusitis M79.2 Neuralgia and neuritis, unspecified M54.2 Cervicalgia Office Visit 12/15/2016 2:30p Neurosurgery Ronan Shea, M48.06 Spinal Services Of Jennifer AT [facility] stenosis, [place] lumbar region M79.2 Neuralgia and neuritis, unspecified Office Visit 04/27/2016 2:45p ENT Services Of [facility] Toledo, R51 Headache C.M.A. AT M.D. Nic Office Visit 11/26/2015 8:30a Orthopedic Anat G56.31 Lesion of radial Services Of Jennifer Peres M.D. nerve, right AT [place] upper limb Office Visit 09/16/2015 1:30p [facility] [place] J01.00 Acute maxillary C.M.A. AT [facility] sinusitis, [place] unspecified Office Visit 09/02/2015 1:30p ENT Services Of [place] Curiel33.8 Other polyp of C.M.A. AT M.D. sinus [place] Office Visit 02/25/2015 1:45p [facility] [place], 461.0 Sinusitis Acute C.M.A. AT M.D. Maxillary [place] 471.0 Polyp Nasal Cavity 388.70 Otalgia & Earache Unspec Office Visit 07/16/2014 3:15p [facility] [place], 471.0 Polyp Nasal C.M.A. AT M.D. Cavity Nic 473.0 Sinusitis Chronic Maxillary Office Visit 04/30/2014 1:00p [facility] [place], 471.0 Polyp Nasal C.M.A. AT M.D. Cavity Nic 381.81 Eustachian Tube Dysfunction Office Visit 02/12/2014 1:00p [facility] [place], 381.81 Eustachian Tube C.M.A. AT M.D. Dysfunction Nic 471.0 Polyp Nasal Cavity Office Visit 10/09/2013 3:15p [facility] 388.70 Otalgia & C.M.A. AT Nic [place] M.D. Earache Unspec Office Visit 09/18/2013 2:30p [facility] [place] 471.0 Polyp Nasal C.M.A. AT Nic [place] M.D. 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 427.31 Atrial Fibrillation 401.9 Hypertension Unspec Office Visit 08/12/2013 8:23a [facility] Ronan Hinton 415.19 Pulmonary Assoc,myranda Maya Embolism And Hospitalists Bindu Infarction Other 453.9 Embolism & Thrombosis Venous Unspec Site 427.31 Atrial Fibrillation 401.9 Hypertension Unspec Office Visit 08/06/2013 [place]/Jluiette Medina 356.9 Neuropathy 3:00p [facility] Bindu Coombs Peripheral Inserting Operator Hereditary Idiopathic Unspec 327.51 Periodic Limb Movement Disorder 780.93 Memory Loss 427.31 Atrial Fibrillation Office Visit 07/18/2013 Neurosurgery Volodymyr Araujo 722.10 Intervertebral Disc 2:40p Services Of Inserting Operator AT Bindu Menezes Displacement Lumbar [place] W/O Myelopathy 724.3 Sciatica Office Visit 07/17/2013 2:30p [facility] [place], 461.9 Sinusitis Acute C.M.A. AT M.Aneta Unspec [place] Office Visit 05/02/2013 2:30p Nic/Gunnisonreinier Medina 356.9 Neuropathy Neurologic Serv Bindu Coombs Peripheral Of Jennifer Hereditary Idiopathic Unspec 799.59 Other Signs And Symptoms Involving Cognition 312.34 Explosive Disorder Intermittent Office Visit 03/26/2013 11:45a [facility] Maci Medina 780.93 Memory Loss Neurologic Serv Of Bindu Coombs Cma 356.9 Neuropathy Peripheral Hereditary Idiopathic Unspec Office Visit 11/13/2012 10:15a Jeremy Pierson 427.31 Atrial Cardiology Of Bindu Stoner, Fibrillation [facility] FAC, [facility] Office Visit 09/26/2012 2:00p [facility] [place] Granger.19 Otitis Media C.M.A. AT Bindu [place] Chronic Serous Nic Other Office Visit 07/11/2012 2:15p [facility] [place] 381.19 Otitis Media C.M.A. AT Bindu [place] Chronic Serous Nic Other Office Visit 06/13/2012 1:30p [facility] [place] 381.19 Otitis Media C.M.A. AT Bindu [place] Chronic Serous Nic Other Office Visit 10/12/2011 3:15p [facility] 473.0 Sinusitis Chronic C.M.A. AT Bindu [place] Maxillary Nic 471.9 Nasal Polyp Unspec 047.9 Meningitis Viral Unspec Office Visit 09/27/2011 10:45a [facility] [place] 471.9 Nasal Polyp C.M.A. AT Bindu Mistry Unspec [place] 473.0 Sinusitis Chronic Maxillary 784.0 Headache Office Visit 06/29/2011 2:30p [facility] [place], 388.31 Tinnitus C.M.A. AT Vira.Aneta Subjective [place] 471.9 Nasal Polyp Unspec Office Visit 02/24/2011 3:20p Neurosurgery Volodymyr Araujo 724.3 Sciatica [facility] PAO Menezes M.D. [place] Office Visit 11/25/2010 11:00a Neurosurgery Volodymyr Araujo 724.3 Sciatica [facility] AT Bindu Menezes [place] Office Visit 11/24/2010 3:45p [facility] [place], 471.9 [facility]al [facility] 471.8 Polyp Sinus Other 473.0 Sinusitis Chronic Maxillary Office Visit 11/11/2010 1:40p Neurosurgery Volodymyr Araujo 724.3 Sciatica [facility] AT Bindu Menezes [place] Office Visit 01/13/2010 2:00p [facility] [place], 471.8 Polyp Sinus [facility] 09/02/2009 2:15p [facility] [place], 784.0 Headache [facility] 471.8 Polyp Sinus Other 461.0 Sinusitis Acute Maxillary Office Visit 07/05/2007 11:00a Neurosurgery Services Volodymyr Menezes, 724.3 Sciatic[facility].10 Intervertebral Disc Displacement Lumbar W/O Myelopathy 724.4 Neuritis Or Radiculitis Thoracic Or Lumbosacral Unspec Office Visit 03/30/2007 9:00a Neurosurgery Services Wagner Sawyer, 724.3 Sciatica Of [facility] Bindu Plan of Treatment Future Appointment(s):11/28/2019 9:00 am - Papi Chow M.D. 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
[2018-12-18 09:28] VITALS: BP 139/91
--- NOTE | 2018-12-18 09:41 | UC ---
Knee Pain HPI - HPI Summary HPI Summary: 63-year-old male comes in with a chief complaint of left knee pain. 6 days ago started with some pain and swelling in the left knee. He has ecchymosis. Pain is worse with trying to bend it and ambulation. Swelling has spread dependently down his leg into the ankle. Patient is on Xarelto. No specific injury. - History of Current Complaint Chief Complaint: UCLowerExtremity Stated Complaint: LT KNEE INJURY Time Seen by Provider: 12/18/18 09:17 Pain Intensity: 4 - Allergies/Home Medications Allergies/Adverse Reactions: Allergies Allergy/AdvReac Type Severity Reaction Status Date / Time adhesive tape Allergy Rash Verified 12/18/18 09:25 amoxicillin Allergy See Comment Verified 12/18/18 09:25 latex Allergy Rash Verified 12/18/18 09:25 PMH/Surg Hx/FS Hx/Imm Hx Previously Healthy: Yes Endocrine History: Dyslipidemia Cardiovascular History: Hypertension - Surgical History Surgical History: Yes Surgery Procedure, Year, and Place: HERNIA REPAIR 1982; sinus polyp removed~ 2011. bicep tendon repair right arm 2014 - Family History Known Family History: Positive: Cardiac Disease - Dad and brothers., Respiratory Disease - Dad with COPD. - Social History Alcohol Use: Occasionally Alcohol Amount: WEEKENDS Substance Use Type: None Substance Use Comment - Amount & Last Used: tramodol Smoking Status (MU): Former Smoker Type: Cigarettes Amount Used/How Often: 2 PPD / CURRENTLY CHEWING TOBACCO Length of Time of Smoking/Using Tobacco: 40 yrs Have You Smoked in the Last Year: No When Did the Patient Quit Smoking/Using Tobacco: 1989 - Immunization History Most Recent Influenza Vaccination: 2012 Most Recent Tetanus Shot: 2009 Most Recent Pneumonia Vaccination: never Review of Systems All Other Systems Reviewed And Are Negative: Yes Constitutional: Positive: Negative Skin: Positive: Other - SEE HPI Eyes: Positive: Negative ENT: Positive: Negative Respiratory: Positive: Negative Cardiovascular: Positive: Negative Gastrointestinal: Positive: Negative Motor: Positive: Negative Neurovascular: Positive: Negative Musculoskeletal: Positive: Other: - SEE HPI Neurological: Positive: Negative Psychological: Positive: Negative Is Patient Immunocompromised?: No Physical Exam Triage Information Reviewed: Yes Appearance: Well-Appearing, No Pain Distress, Well-Nourished Vital Signs: Initial Vital Signs Temp 98.8 F 12/18/18 09:23 Pulse 94 12/18/18 09:23 Resp 18 12/18/18 09:23 BP 139/91 12/18/18 09:23 Pulse Ox 99 12/18/18 09:23 Vital Signs Reviewed: Yes Eye Exam: Normal Eyes: Positive: Conjunctiva Clear Neck: Positive: Supple Respiratory: Positive: No respiratory distress Musculoskeletal: Positive: Other: - Left knee is swollen. He has tenderness on the medial and posterior aspects. There is ecchymosis at the sites. Mild decreased range of motion secondary to swelling. There is dependent edema down into the left ankle. Calf is nontender to palpation. Normal capillary refill. Patient reports sensation is slightly decreased in the left foot which does have dependent edema. Positive dorsalis pedis pulse. Neurological: Positive: Alert Psychological: Positive: Age Appropriate Behavior Skin: Positive: Other - ECCYMOSIS MEDIAL AND POSTERIOR ASPECT OF LEFT KNEE Knee Pain Course/Dx - Course Course Of Treatment: Patient Name: WILLIAM JACQUES Medical Record#: [id number] Ordering Physician: Erik Johnson MD Acct.#: [id number] : 1955 Age: 63 Sex: M Location: [facility] Exam Date: 12/18/18918 ADM Status: REG ER Order Information: KNEE LEFT 4+ VWS Accession Number: [id number] CPT: 86484 Indication: Anterior LEFT knee pain and bruising for 6 days following kneeling on concrete. Comparison: No relevant prior exams available on the [facility] for comparison. Technique: LEFT knee: AP, tunnel, lateral, sunrise views. Report: Negative for joint effusion, fracture, or articular malalignment. Minimal osteophytosis and medial joint space narrowing. 2.3 cm transverse by 1.4 cm AP by 6.8 cm cephalocaudal incidental osseous lesion which appears to involve the proximal metaphyseal cortex of the tibia at the medial posterior margin. Negative for associated periosteal reaction, endosteal scalloping, or other aggressive features. The radiographic appearance is most consistent with a partially ossified nonossifying fibroma/fibroxanthoma. Anterior soft tissue swelling most prominent superficial to the patellar tendon. IMPRESSION: #. Anterior soft tissue swelling most prominent superficial to the patellar tendon which may reflect prepatellar bursitis and/or patellar tendinopathy. Consider ultrasound for further assessment if deemed appropriate. #. Very mild osteoarthritis. #. 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 <Electronically signed by Blayne Farmer MD in OV> 12/18/18 0956 Patient Name: WILLIAM JACQUES Medical Record#: [id number] Ordering Physician: Erik Johnson MD Acct.#: [id number] : 1955 Age: 63 Sex: M Location: [facility] Exam Date: 12/18/18 1012 ADM Status: REG ER Order Information: US SOFT TISSUE LIMITED EXT-LT Accession Number: [id number] CPT: 95283 Indication: Anterior LEFT knee pain following kneeling on concrete. Comparison: Radiographs of the same date.. Technique: Musculoskeletal ultrasound. Ultrasound of the patellar tendon and prepatellar soft tissues.. Report: There is dermal and subcutaneous tissue plane edema. Loculated complex fluid collection consistent with prepatellar bursitis measuring up to approximate 1.1 cm AP by 2.1 cm transverse by 2.9 cm cephalocaudal. The subjacent patellar tendon appears normal in morphology. IMPRESSION: #. Prepatellar bursitis and surrounding soft tissue edema. <Electronically signed by Blayne Farmer MD in OV> 12/18/18 1042 I discussed the x-ray and ultrasound results with the patient. At this time for prepatellar bursitis were treating with ice and elevation. Patient is on XARELTO so therefore he cannot take nonsteroidal anti-inflammatories. Also Leon wrap was placed by nursing and clinic patient neurovascular intact after placement of the Leon wrap. Patient will use the Leon wrap if it's helpful otherwise he'll just taken off. Patient will be following up with orthopedics for further evaluation and care. At this time there was no evidence of any infection. - Differential Dx/Diagnosis Provider Diagnosis: Bursitis, prepatellar, left Discharge - Sign-Out/Discharge Documenting (check all that apply): Patient Departure All imaging exams completed and their final reports reviewed: Yes - Discharge Plan Condition: Stable Disposition: HOME Patient Education Materials: Knee Bursitis (ED) Referrals: Glenn Hewitt MD [Primary Care Provider] - Dipesh Pinzon MD [Medical Doctor] - Additional Instructions: FOLLOW UP WITH ORTHOPEDICS, DR PINZON. GET RECHECKED SOONER IF YOUR CONDITION WORSENS OR ANY QUESTIONS OR CONCERNS. - Billing Disposition and Condition Condition: STABLE Disposition: Home
== END 2018-12-18 11:10 | disposition home or self-care (01) ==
LOC: UCCORT 09:00
DX: M70.42 Prepatellar bursitis, left knee (principal); Z79.01 Long term (current) use of anticoagulants; I10 Essential (primary) hypertension; F17.220 Nicotine dependence, chewing tobacco, uncomplicated
CPT/HCPCS: 99212; G0463

== ENCOUNTER 2019-01-18 07:01 | Emergency (ER) | payer BC ==
--- OUTSIDE RECORDS SUMMARY | 2019-01-18 07:15 | XMS REPORT | Continuity of Care Document ---
:1955 External Reference #:[id number] Author Name Tyrell Guzman Care Team Providers Name Role Phone Glenn Hewitt MD Primary Care Physician Unavailable Payers Date Identification Numbers Payment Provider Subscriber Effective: 2011 Policy Number: [id number] [employer] Facets Lillian Moreno PayID: [id number] [address] [address] [place] [address] Problems Active Problems Provider Date Displacement of [...] Papi Chow, 07/05/2017 0.025% Cream daily for local M.D. pain Zolpidem Tartrate 1/2-1 tab po 20tabs Unknown 10mg Tablets qhs prn Xarelto 1 by mouth qd Unknown 20mg Tablets Atorvastatin Calcium 1 by mouth Unknown 10mg every day Tablets Co Q 10 1 by mouth Unknown 10mg Capsules every day Tramadol HCL 1-2 tablets Unknown 50mg Tablets every 6 hours as needed Bystolic 1 tab by mouth Unknown 20mg Tablets once daily Fluticasone Propionate directed as Niziol, needed MD Glenn 50mcg/Act Suspension History Medications Plaquenil 2 by mouth daily 60tabs Papi Chow, 07/27/2017 - 200mg Tablets ongoing M.D. 12/29/2017 Doxycycline Hyclate 1 tab by mouth 8caps Francisco Toledo, 06/21/2017 - 100mg twice a day M.D. 07/05/2017 Capsules Doxycycline Hyclate 1 tab by mouth 28caps Francisco Toledo, 09/16/2015 - 100mg twice a day M.D. 12/13/2016 Capsules Percocet 1-2 by mouth 10tabs Francisco Toledo, 09/16/2015 - 5-325mg Tablets every 4-6 hours M.D. 12/12/2016 as needed for pain Doxycycline Hyclate 1 tab by mouth 20caps Francisco Toledo, 02/25/2015 - 100mg twice a day M.D. 03/04/2015 Capsules Doxycycline Hyclate 1 tab by mouth 20tabs Unknown 02/25/2015 - 100mg twice a day for 03/04/2015 Tablets 10 days Doxycycline Hyclate 1 tab by mouth 20caps Francisco Toledo, 07/16/2014 - 100mg twice a day M.DJanuary 02/24/2015 Capsules Medrol medrol dosepack 1pack Francisco Toledo, 07/16/2014 - 4mg Tablets as directed M.DJanuary 02/24/2015 Azelastine HCL 2 sprays to each 1Month Francisco Toledo, 02/12/2014 - nostril twice a M.D. 12/12/2016 137mcg/[place] Solution day Lyrica 3 - 6 caps by 180savage Medina 09/24/2013 - 50mg Capsules mouth every night Bindu Coombs 12/13/2016 as directed Prednisone 40 mg po qday for 100tabs 471.0 Papi 08/30/2013 - 5mg Tablets 7 days, 20 mg for [facility], 09/11/2013 4 days, 10 mg M.D. for 4 days, then 5 mg a day Doxycycline 1 po bid with 28caps 471.0 Papi 08/30/2013 - Monohydrate food and avoid Ethan, 09/15/2013 100mg sunlight M.D. Capsules Lyrica 3 - 6 caps by carolina Medina 08/06/2013 - 50mg Capsules mouth every [...] - 25mg directed Bindu Coombs 05/02/2013 Tablets Verapamil HCL CR 1 po qd 90tabs Asherlast Pierson 01/01/2013 - 240mg Bindu Stoner, 12/13/2016 Tablets ER FACC, FASNC Metoprolol Succinate 1 po qd 90tabs Asherlast Pierson 01/01/2013 - ER Bindu Stoner, 12/13/2016 100mg Tablets ER 24HR FACC, FASNC Ofloxacin 4 drops to 15ml Francisco Toledo, 08/29/2012 - 0.3% Solution affected ear M.DJanuary 07/17/2013 twice a day for 5 days Fluticasone Propionate 2 puffs each 1month Francisco Toledo, 06/13/2012 - nostril daily M.DJanuary 07/17/2013 50mcg/Act Suspension Medrol Dosepak take as directed fozia Toledo 06/13/2012 - 4mg M.DJanuary 07/11/2012 Tablets Prednisone one p.o. once a 10days 473.0 [facility] 09/27/2011 - 20mg Tablets day in a.m. x10 Bindu Mistry 11/23/2011 days Vicodin 2 p.o. q.6 h. 30tabs 473.0 [facility] 09/27/2011 - 5-500mg Tablets p.r.n. Bindu Mistry 11/23/2011 Gabapentin 1 po qid and 120caps Volodymyr Araujo 02/24/2011 - 300mg Capsules increase Bindu Menezes 08/29/2012 gradually up to 6 capsules per day if needed to control symptoms Fluticasone Propionate 2 puffs each 1month Francisco Toledo 12/01/2010 - nostril daily M.DJanuary 08/29/2012 50mcg/Act Suspension Gabapentin 1 po qhs to start 90savage Araujo 11/25/2010 - 100mg Capsules and may increase Bindu Menezes 02/24/2011 as tolerated to 2 po qhs then 1 po qam and 2 po hs, gradually up to 3 tid prn pain Tramadol HCL qid prn 120tabs Francisco Toledo 01/13/2010 - 50mg Tablets Vira.DJanuary 07/17/2013 Aspir-81 1 po qd Francisco Toledo 01/13/2010 - 81mg Tablets DR Ruano 09/01/2013 Biaxin 1 po bid 28tabs Unknown - 500mg Tablets 09/18/2013 Warfarin Sodium 1 tab by mouth 90tabs Unknown - 6mg every day as 11/25/2015 Tablets directed Verapamil HCL ER 1 po qd 30caps Unknown - 240mg 11/25/2015 Caps ER 24HR Nasonex 2 sprays to each 1units Unknown - 50mcg/Act nostril once 12/13/2016 Suspension daily Montelukast Sodium 1 po qd 90tabs Unknown - 10mg 12/13/2016 Tablets Cymbalta 1 by mouth every Unknown - 60mg Caps DR day- will stop 12/15/2016 Part 12/18/16 Lyrica 1 by mouth twice Unknown - 25mg Capsules a day 07/27/2017 Ultram one tablet every Unknown - 50mg Tablets 8 hours as needed 12/14/2016 for pain orally Ultra Move Free Unknown - 12/18/2018 Clarithromycin Niziol, - 500mg MD Glenn 03/29/2018 Tablets Multivitamins 1 capsule daily 30caps Unknown - Capsules 12/18/2018 Bactrim DS 1 po bid for 7 [...] Code Status Date Vaccine Reaction Lot # 85716 Given 03/29/2018 Influenza Virus Vaccine, No immediate reaction [id number] Quadrivalent, Split, noted Preservative Free Vital Signs Date Vital Result Comment 12/19/2018 2:35pm Height 69 inches 5'9" Weight 212.00 lb Heart Rate 63 /min BP Systolic Sitting 130 mmHg BP Diastolic Sitting 98 mmHg Respiratory Rate 18 /min Pain Level 1 BMI (Body Mass Index) 31.3 kg/m2 11/28/2018 8:52am Height 69 inches 5'9" Weight [...] Result H/L Range Note Laboratory test 03/29/2018 [facility] Erythrocyte Sed <pending> finding [address] [place] [address] [phone] C Reactive Protein <pending> Laboratory test 03/10/2018 [facility] Erythrocyte Sed 0 mm/Hr N 0-20 [address] [place] [address] [phone] C Reactive Protein 1.19 mg/L N <8.01 2 CBC Auto Diff 03/10/2018 [facility] White Blood 8.6 10^3/uL N 3.5-10.[address] [place] [address] [phone] Red Blood Count 4.66 10^6/uL N 4.00-5.40 [...] Cells % 0.8 Comp Metabolic Panel 03/10/2018 [facility] Sodium 142 mmol/L N 135-[address] [place] [address] [phone] Potassium 4.2 mmol/L N 3.5-5.0 Chloride 106 [...] Egfr 99.1 >60 3 Laboratory test 09/23/2017 [facility] Erythrocyte Sed 0 mm/Hr N 0-20 [address] [place] [address] [phone] C Reactive Protein < 1.00 mg/L N < 5.00 5 CBC Auto Diff 09/23/2017 [facility] White Blood 6.9 10^3/uL N 3.5-10.[address] [place] [address] [phone] Red Blood Count 4.65 10^6/uL N 4.0-5.4 [...] Cells % 0 Comp Metabolic Panel 09/23/2017 [facility] Sodium 139 mmol/L N 133-[address] [place] [address] [phone] Potassium 4.0 mmol/L N 3.5-5.0 Chloride 103 [...] >60 Egfr 91.7 >60 6 Cardiolipin 07/05/2017 [facility] Phospholipid Ab < 9.4 MPL 7 Igg/Igm IgM, [place] [address] [phone] Phospholipid Ab IgG < 9.4 GPL 8 Jerica Igg AB Reflex 07/05/2017 [facility] SS-A/Ro Antibody <0.[address] [place] [address] [phone] SS-B/La Antibody <0.2 U 10 Sm (Grewal) IgG Antibody <0.2 U 11 U1-nRNP Antibody <0.2 U 12 Scl-70 (Scleroderma) Antibody <0.2 U 13 Aleida-1 Antibody <0.2 U 14 Laboratory test 07/05/2017 [facility] TSH (Thyroid 1.79 mcIU/mL N 0.34-5.[address] Stim Horm) [place] [address] [phone] Hla B27 07/05/2017 [facility] Hla B27 [address] [place] [address] [phone] Hla B27 Interp See Comment 16 Vitamin B12 And 07/05/2017 [facility] Vitamin B12 629 pg/mL N 180-[address] [place] [address] [phone] Folic Acid (Folate) > 20.00 ng/mL >3.99 Immunoglobulins 07/05/2017 [facility] Immunoglobulin G 722 Abnormal 767 - 18 Serum Quant mg/dL [address] [place] [address] [phone] Immunoglobulin M 89 mg/dL 37 - 286 Immunoglobulin A 232 mg/dL 61 - 356 Anca AB Ser If 07/05/2017 [facility] C-Anca Negative Negative [address] [place] [address] [phone] P-Anca Negative Negative 19 Laboratory test 07/05/2017 [facility] Rheumatoid Factor <15 IU/ mL <15 [address] [place] [address] [phone] Erythrocyte Sed Rate 7 mm/Hr N 0-20 C Reactive Protein < 1.00 mg/L N < 5.00 21 Uric Acid 5.5 mg/dL N 4.4-7.6 Connective Tissue 07/05/2017 [facility] Anti-Nuclear 1.6 U High [address] [place] [address] [phone] Cyclic Citrullinated Peptide <15.6 U 23 Interpretation See Comment 24 Laboratory test 07/05/2017 [facility] Angiotensin 38 U/L 8 - 53 [address] [place] [address] [phone] CBC Auto Diff 08/12/2013 [facility] White Blood Count 10.3 4.8-10. [address] 10^3/uL 8 [place] [address] [phone] Red Blood Count 4.77 10^6/uL 4.0-5.4 Hemoglobin [...] Cells % 0.1 Comp Metabolic Panel 08/12/2013 [facility] Sodium 136 mmol/L 133-[address] [place] [address] [phone] Potassium 4.0 mmol/L 3.5-5.0 Chloride 102 mmol/L [...] Egfr 112.3 >60 26 Laboratory test 03/26/2013 [facility] Vitamin B12 602 pg/mL 180-914 finding [address] [place] [address] [phone] Folate > 24.8 ng/mL High 2-16 C [...] REFERENCE VALUE <15.0 (Negative) Test Performed by: [address] [address] 9 REFERENCE VALUE <1.0 (Negative) 10 REFERENCE VALUE <1.0 (Negative) 11 REFERENCE VALUE <1.0 (Negative) 12 REFERENCE VALUE <1.0 (Negative) 13 REFERENCE VALUE <1.0 (Negative) 14 REFERENCE VALUE <1.0 (Negative) Test Performed by: [place] [address] 15 REFERENCE VALUE Not Applicable 16 RESULT: HLA-B27 antigen was not detected. ADDITIONAL INFORMATION Method: Flow Cytometry Performing Laboratory CLIA# [id number] Test Performed by: [place] [address] 17 Normal Range 180 to 914 Indeterminate Range 145 to 180 Deficient Range <145 18 Test Performed by: [place] [address] 19 Negative for cANCA and pANCA patterns by immunofluorescence. ADDITIONAL INFORMATION This test was developed and its performance characteristics determined by [facility] in a manner consistent with CLIA requirements. This test has not been cleared or approved by the U.S. Food and Drug Administration. Test Performed by: [place] [address] 20 Test Performed by: [place] [address] 21 Acute inflammation: >10.00 22 Interpretation: Weak Positive (1.1-2.9) REFERENCE VALUE <=1.0 (Negative) 23 REFERENCE VALUE <20.0 (Negative) 24 Tests for antibodies to dsDNA and JERICA antigens are not performed automatically unless the SHELBY result is > or= 3.0 U. Studies performed at [facility] indicate that positive SHELBY results <3.0 U are rarely accompanied by positive second order tests. Test Performed by: [place] [address] 25 Test Performed by: [place] [address] 26 Because ethnic data is not always [...] <15 (or dialysis) 27 @Sample frozen by [id number] at 2009 on 03/26/13. Procedures Date Code Description Status 11/22/2018 [id number] Diabetic Retinal Eye Exam Completed 11/09/2017 [id number] Diabetic Retinal Eye Exam Completed 06/21/2017 97484 Nasal Endoscopy, Diagnostic Completed 09/30/2015 11016 Nasal Endoscopy, Diagnostic Completed 09/23/2015 31119 N/ Endo/W/Max Antro Exc Polyp Completed 02/12/2014 57090 Tympanometry Completed 08/30/2013 55406 Nasal Endoscopy, Diagnostic Completed 05/01/2013 15241 Polysomnography Sleep Staging 4+ Parameters Completed 11/06/2012 92333 ECHO Transthoracic, Real-Time 2D With Doppler And Completed Color Flow 08/29/2012 85112 Myringotomy W/Tube, OS Completed 07/11/2012 37281 Tympanometry Completed 11/23/2011 99644 Nasal Endoscopy, Diagnostic Completed 11/16/2011 74636 N/ Endo/W/Max Antro Exc Polyp Completed 11/24/2010 60069 Nasal Endoscopy, Diagnostic Completed 01/13/2010 82333 Nasal Endoscopy, Diagnostic Completed 09/02/2009 10639 Nasal Endoscopy, Diagnostic Completed Encounters Type Date Location Provider Dx Diagnosis Office Visit 12/19/2018 Orthopedic Services Dipesh Constantino M70.42 Prepatellar bursitis, 2:30p Of Communications Field Technician AT Nic Pinzon MD left knee Office Visit 11/28/2018 Rheumatology Yaya May6.4 Inflammatory 9:00a Services Of Jennifer Ruano polyarthropathy Z79.899 Other rodent exterminator (current) drug therapy M19.049 Primary osteoarthritis, unspecified hand Office Visit 03/29/2018 9:00a Rheumatology Papi Chow Z23 Encounter for Services Of Jennifer Ruano immunization M19.049 Primary osteoarthritis, unspecified hand Z79.899 Other rodent exterminator (current) drug therapy M06.4 Inflammatory polyarthropathy Office Visit 09/27/2017 Rheumatology Papi M06.4 Inflammatory 9:20a Services Of Jennifer Chow M.D. polyarthropathy M19.049 Primary osteoarthritis, unspecified hand Z79.899 Other correction (current) drug therapy M54.2 Cervicalgia Office Visit 07/27/2017 Rheumatology Papi M06.4 Inflammatory 4:20p Services Of Jennifer Chow M.D. polyarthropathy D84.9 Immunodeficiency, unspecified Z79.899 Other correction (current) drug therapy M19.049 Primary osteoarthritis, unspecified hand Office Visit 07/05/2017 Rheumatology Papi M06.4 Inflammatory 10:00a Services Of Jennifer Chow M.D. polyarthropathy J32.0 Chronic maxillary sinusitis M79.2 Neuralgia and neuritis, unspecified M54.2 Cervicalgia Office Visit 12/15/2016 2:30p Neurosurgery Ronan Shea, M48.06 Spinal Services Of Jennifer AT .D. stenosis, [place] lumbar region M79.2 Neuralgia and neuritis, unspecified Office Visit 04/27/2016 2:45p ENT Services Of Francisco Toledo, R51 Headache C.M.A. AT M.D. Nic Office Visit 11/26/2015 8:30a Orthopedic Anat G56.31 Lesion of radial Services Of Jennifer Peres M.D. nerve, right AT [place] upper limb Office Visit 09/16/2015 1:30p ENT Services Of Francisco [place], J01.00 Acute maxillary C.M.A. AT .D. sinusitis, [place] unspecified Office Visit 09/02/2015 1:30p ENT Services Of Francisco Toledo, J33.8 Other polyp of C.M.A. AT M.D. sinus [place] Office Visit 02/25/2015 1:45p ENT Services Of Francisco Toledo, 461.0 Sinusitis Acute C.M.A. AT M.D. Maxillary Nic 471.0 Polyp Nasal Cavity 388.70 Otalgia & Earache Unspec Office Visit 07/16/2014 3:15p ENT Services Of Francisco Toledo, 471.0 Polyp Nasal C.M.A. AT M.D. Cavity [place] 473.0 Sinusitis Chronic Maxillary Office Visit 04/30/2014 1:00p ENT Services Of Francisco Toledo, 471.0 Polyp Nasal C.M.A. AT M.D. Cavity [place] 381.81 Eustachian Tube Dysfunction Office Visit 02/12/2014 1:00p ENT Services Of Francisco Tol[place], 381.81 Eustachian Tube C.M.A. AT M.D. Dysfunction [place] 471.0 Polyp Nasal Cavity Office Visit 10/09/2013 3:15p ENT Services Of Francisco 388.70 Otalgia & C.M.A. AT Nic Toledo M.D. Earache Unspec Office Visit 09/18/2013 2:30p ENT Services Of Francisco 471.0 Polyp Nasal C.M.A. AT Nic Toledo M.D. 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 Displacement Lumbar [place] W/O Myelopathy 724.3 Sciatica Office Visit 07/17/2013 2:30p ENT Services Of Francisco Toledo, 461.9 Sinusitis Acute C.M.A. 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 AT Bindu Toledo Chronic Serous Nic Other Office Visit 07/11/2012 2:15p ENT Services Of Francisco Granger.19 Otitis Media C.M.A. AT Bindu Toledo Chronic Serous Nic Other Office Visit 06/13/2012 1:30p ENT Services Of Francisco Granger.19 Otitis Media C.M.A. AT Bindu Toledo Chronic Serous [place] Other Office Visit 10/12/2011 3:15p ENT Services Of Francisco 473.0 Sinusitis Chronic C.M.A. AT Bindu Toledo Maxillary Nic 471.9 Nasal Polyp Unspec 047.9 Meningitis Viral Unspec Office Visit 09/27/2011 10:45a ENT Services Of Khoa 471.9 Nasal Polyp C.M.A. AT Bindu Mistry Unspec [place] 473.0 Sinusitis Chronic Maxillary 784.0 Headache Office Visit 06/29/2011 2:30p ENT Services Of Francisco Toledo, 388.31 Tinnitus C.M.A. AT Bindu Subjective Nic 471.9 Nasal Polyp Unspec Office Visit 02/24/2011 3:20p Neurosurgery Volodymyr Araujo 724.3 Sciatica Services Of [facility] AT Bindu Menezes [place] Office Visit 11/25/2010 11:00a Neurosurgery Volodymyr Araujo 724.3 Sciatica Services Of [facility] AT Bindu Menezes [place] Office Visit 11/24/2010 3:45p ENT Services Of Francisco Toledo, 471.9 Nasal Polyp C.M.A. AT [place] Bindu Unspec 471.8 Polyp Sinus Other 473.0 Sinusitis Chronic Maxillary Office Visit 11/11/2010 1:40p Neurosurgery Volodymyr Araujo 724.3 Sciatica Services Of [facility] AT Bindu Menezes [place] Office Visit 01/13/2010 2:00p ENT Services Of Francisco Toledo, 471.8 Polyp Sinus C.M.A. AT Nic Bindu Other Office Visit 09/02/2009 2:15p ENT Services Of Francisco Toledo, 784.0 Headache C.M.A. 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 at Rheumatology Services Of [facility]12/19/2018 - Dipesh Pinzon, MDM70.42 Prepatellar bursitis, left kneeComments:ice/elevate , sleeve, compression stockingsFollow up :Follow up: 6 months for x-ray check of incidental finding
--- OUTSIDE RECORDS SUMMARY | 2019-01-18 07:15 | XMS REPORT | Continuity of Care Document ---
:1955 External Reference #:[id number] Author Name Faviola Downey Care Team Providers Name Role Phone Glenn Hewitt MD Care Team Information [employer] Unavailable Glenn Hewitt MD Primary Care Physician Unavailable Payers Date Identification Numbers Payment Provider Subscriber Effective: 2014 Policy Number: [id number] Lebron Moreno PayID: [id number] [address] [address] [place] [address] Problems Active Problems Provider Date Disorder of skin and/or Kashmir Hart M.D. Onset: 06/07/2013 subcutaneous tissue Atrial fibrillation Fabi Medrano, ANP Onset: 01/03/2014 Pulmonary embolism Fabi Medrano, ANP Onset: 01/03/2014 Benign essential hypertension Fabi Medrano, ANP Onset: 01/03/2014 FH: Cardiovascular disease Fabi Medrano, ANP Onset: 01/03/2014 Mixed hyperlipidemia Avel Negron MD, PhD Onset: 03/31/2014 Sleep dysfunction with sleep stage Fabi Medrano ANP Onset: 06/13/2014 disturbance Anticoagulant agent Fabi Medrano, ANP Onset: 11/10/2014 Atrial flutter Ingrid Sutherland, [place], SENIOR ASSET MANAGER Onset: 11/10/2014 Essential hypertension Fabi Medrano, ANP Onset: 04/16/2015 Sleep disorder Fabi Medrano, ANP Onset: 04/16/2015 Injury of shoulder region Nazanin Hauser PA Onset: 07/02/2015 Unspecified injury of muscle, Nazanin Hauser PA Onset: 07/28/2015 fascia and tendon of other parts of biceps, right arm, subsequent encounter Family History Date Family Member(s) Observation Comments Father Heart Disease : (age 61 Years) Father due to Congestive Heart Failure Mother Liver Disease Mother due to Unknown Causes () First Brother due to Congestive Heart () Failure Second Brother due to Congestive Heart () Failure Social History Type Date Description Comments Sex Unknown Lives With Diet Patient follows no dietary restrictions 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 ADL's/IADL's Independent with all ADL's Tobacco Use Start: Unknown End: Unknown Former Cigarette Smoker Cigarette Use Pack Years - 12 Cigarette Use Chews Tobacco Smoking Status Reviewed: 12/19/18 Former Cigarette Smoker ETOH Use Drinks Alcoholic Beverages weekends Occasionally Tobacco Use Start: Unknown End: Unknown Patient is a former smoker Allergies, Adverse Reactions, Alerts Active Allergies Reaction Severity Comments Date Amoxicillin severe joint pain 06/07/2013 Medications Active Medications SIG Qnty Indications Ordering Provider Date Bystolic Take 1 Tablet By 90tabs I10 Nikita Grewal MD 08/26/2017 10mg Tablets Mouth Every Day I48.1 Lipitor take one tablet 90tabs E78.2 Yusef Humphries 08/01/2014 10mg Tablets by mouth every M.Bindu, [facility] day Xarelto take one tablet 90tabs I48.1 Yusef Humphries 07/18/2014 20mg Tablets by mouth every M.Bindu, [facility] evening Zolpidem Tartrate 1 po qd 30tabs Unknown 10mg Tablets Tramadol HCL 1 po as needed 20tabs Unknown 50mg Tablets for pain Move Free Ultra 1 po qd Unknown Hydroxychloroquine Sulfate 1 po qd Unknown 200mg Tablets Lexapro 1 by mouth every Unknown 10mg Tablets day Tamsulosin HCL Take 1 Capsule Unknown 0.4mg Capsules By Mouth Every Day History Medications Bystolic 1 by mouth 90tabs I10 Ingrid Sutherland 06/22/2017 - 20mg every day Helen MSN, SENIOR ASSET MANAGER 08/26/2017 Tablets I48.1 Bystolic 1 by mouth every 90tabs I10 Nikita Grewal MD 12/29/2016 - 10mg Tablets day 06/22/2017 I48.1 Hydrochlorothiazide 1 by mouth 90caps I10 Nikita Grewal, 07/16/2015 - 12.5mg Capsules every day 01/23/2016 Bystolic 1 by mouth 90tabs I10 Nikita Grewal, 07/16/2015 - 5mg Tablets every day 12/29/2016 I48.1 [place] 1-2 by mouth 60tabs Glenn Melton, 07/14/2015 - 5-325mg Tablets every 4-6 hour M.D. 07/28/2015 as needed pain Metoprolol Succinate 1 by mouth 90tabs I48.1 Nikita Grewal MD 04/16/2015 - ER every day 09/08/2015 50mg Tablets ER 24HR Metoprolol Succinate 1/2 tablet by 427.31 Ingrid Sutherland 10/02/2014 - ER mouth every day RALEIGH Cervantes, 11/08/2014 100mg Tablets ER SENIOR ASSET MANAGER 24HR 401.1 Amiodarone HCL 1 by mouth every 90tabs I48.1 Ingrid Sutherland 09/05/2014 - day RALEIGH Cervantes, 04/16/2015 200mg Tablets SENIOR ASSET MANAGER Lipitor 1 by mouth every 30tabs 272.2 Avel Negron, 07/02/2014 - 10mg day , PhD Unknown Tablets Amiodarone HCL 1 by mouth every 90tabs 427.31 Avel Negron, 04/29/2014 - day , PhD 08/08/2014 200mg Tablets Coumadin two tabs daily 180tabs Avel Negron, 03/07/2014 - 3mg or as directed , PhD 07/18/2014 Tablets Xarelto 1 tab by mouth 30tabs Avel Negron, 03/01/2014 - 20mg every evening , PhD 03/07/2014 Tablets Verapamil HCL ER 1 tab qd 90caps 427.31 Avel Negron, 01/17/2014 - MD, PhD 11/08/2014 240mg Caps ER 24HR Metoprolol 1 po qd 90tabs 427.31 Avel Negron, 01/17/2014 - Succinate ER , PhD 10/02/2014 100mg Tablets ER 24HR 401.1 Lovenox 1 sq bid 12units Avel Negron, 01/14/2014 - 100mg/ml , PhD Unknown Solution Doxycycline Hyclate Unknown - Unknown 100mg Capsules Hydrocodone-Acetamino 1 by mouth every 6 Unknown - phen hours as needed 10/01/2015 5-325mg Tablets pain Co Q10 by mouth every day Unknown - 200mg Capsules Unknown Cymbalta 1 by mouth every Unknown - 60mg Caps DR day Unknown Part Duloxetine HCL Unknown - 60mg Unknown Caps DR Part Multi Vitamin Daily 1 qd Unknown - 07/02/2015 Tablets Flonase 1 intranasal every Unknown - 50mcg/Act day Unknown Suspension Tramadol HCL ER 1 tab po qam 14tabs Unknown - 100mg Unknown Tablets ER 24HR Cymbalta 1 po qd 30caps Unknown - 60mg Caps DR 07/02/2015 Part Lyrica 1 po qd Unknown - 50mg Capsules Unknown Magnesium Oxide by mouth once a day 60tabs Unknown - 250mg Unknown Tablets Ocuvite Adult 50+ 1 qd Unknown - Unknown Capsules Coumadin 1-2 tabs po as 90tabs Avel Negron, - 3mg Tablets directed , PhD Unknown Multi Vitamin Mens 1 qd Unknown - Unknown Tablets Aspirin 1 po qd 90tabs Unknown - 81mg Tablets Unknown Cymbalta 1 po qd Unknown - Caps Part Unknown Metoprolol 1 po qd 30tabs Unknown - 100mg 01/17/2014 Tablets ER 24HR Verapamil HCL 1 tab qd 90tabs [place] - 240mg 01/17/2014 Tablets Vital Signs Date Vital Result Comment 12/19/2018 9:10am BP Systolic Sitting Left Arm 150 mmHg BP Diastolic Sitting Left Arm 94 mmHg Heart Rate 85 /min Respiratory Rate 16 /min Height 69 inches 5'9" Weight 213.00 lb BMI (Body Mass Index) 31.5 kg/m2 BSA (Body Surface Area) 2.12 m2 [place] body weight in kilograms 73 kg O2 Saturation Level with Exercise 99 % 06/02/2018 9:00am BP Systolic Sitting Left Arm 132 mmHg BP Diastolic Sitting Left Arm 78 mmHg Heart Rate 66 /min Respiratory Rate 18 /min Height 69 inches 5'9" Weight 206.00 lb BMI (Body Mass Index) 30.4 kg/m2 BSA (Body Surface Area) 2.09 m2 [place] body weight in kilograms 73 kg O2 % BldC Oximetry 96 % Ora 11/10/2017 8:59am BP Systolic Sitting Left Arm 146 mmHg BP Diastolic Sitting Left Arm 88 mmHg Heart Rate 72 /min Respiratory Rate 16 /min Height 69 inches 5'9" Weight 205.00 lb BMI (Body Mass Index) 30.3 kg/m2 BSA (Body Surface Area) 2.09 m2 [place] body weight in kilograms 73 kg 06/22/2017 8:42am BP Systolic Sitting Left Arm 148 mmHg BP Diastolic Sitting Left Arm 84 mmHg Heart Rate 80 /min Respiratory Rate 16 /min Weight 220.00 lb 12/29/2016 8:04am BP Systolic Sitting Left Arm 137 mmHg BP Diastolic Sitting Left Arm 96 mmHg Heart Rate 99 /min Respiratory Rate 16 /min Height 69.0 inches 5'9" Weight 223.00 lb BMI (Body Mass Index) 32.9 kg/m2 BSA (Body Surface Area) 2.16 m2 [place] body weight in kilograms 73 kg 07/26/2016 8:23am BP Systolic Sitting Left Arm 148 mmHg BP Diastolic Sitting Left Arm 88 mmHg Heart Rate 84 /min Respiratory Rate 18 /min Height 69.0 inches 5'9" Weight 226.00 lb BMI (Body Mass Index) 33.4 kg/m2 BSA (Body Surface Area) 2.18 m2 01/23/2016 8:38am BP Systolic Sitting Left Arm 130 mmHg BP Diastolic Sitting Left Arm 88 mmHg Heart Rate 84 /min Respiratory Rate 16 /min Height 69.0 inches 5'9" Weight 218.00 lb BMI (Body Mass Index) 32.2 kg/m2 BSA (Body Surface Area) 2.14 m2 09/08/2015 8:40am BP Systolic Sitting Left Arm 122 mmHg BP Diastolic Sitting Left Arm 84 mmHg Heart Rate 84 /min Respiratory Rate 16 /min Height 69.0 inches 5'9" Weight 224.00 lb BMI (Body Mass Index) 33.1 kg/m2 BSA (Body Surface Area) 2.17 m2 07/28/2015 2:00pm BP Systolic 140 mmHg BP Diastolic 82 mmHg Heart Rate 72 /min Height 69.0 inches 5'9" Weight 221.00 lb BMI (Body Mass Index) 32.6 kg/m2 BSA (Body Surface Area) 2.16 m2 07/16/2015 11:32am BP Systolic Sitting Right Arm 128 mmHg BP Diastolic Sitting Right Arm 90 mmHg Heart Rate 80 /min Respiratory Rate 16 /min Height 70 inches 5'10" Weight 224.00 lb BMI (Body Mass Index) 32.1 kg/m2 BSA (Body Surface Area) 2.19 m2 07/14/2015 11:18am BP Systolic 136 mmHg BP Diastolic 75 mmHg Heart Rate 121 /min Height 70 inches 5'10" Weight 223.00 lb BMI (Body Mass Index) 32.0 kg/m2 BSA (Body Surface Area) 2.19 m2 O2 % BldC Oximetry 98 % 07/07/2015 3:41pm BP Systolic Sitting Right Arm 140 mmHg BP Diastolic Sitting Right Arm 82 mmHg Heart Rate 108 /min Respiratory Rate 16 /min Height 70 inches 5'10" Weight 224.00 lb BMI (Body Mass Index) 32.1 kg/m2 BSA (Body Surface Area) 2.19 m2 07/02/2015 1:49pm BP Systolic 145 mmHg BP Diastolic 85 mmHg Heart Rate 105 /min Height 70 inches 5'10" Weight 220.00 lb BMI (Body Mass Index) 31.6 kg/m2 BSA (Body Surface Area) 2.17 m2 O2 % BldC Oximetry 98 % 05/23/2015 9:08am BP Systolic Sitting Right Arm 140 mmHg BP Diastolic Sitting Right Arm 88 mmHg Heart Rate 70 /min Respiratory Rate 16 /min Height 70 inches 5'10" Weight 219.00 lb BMI (Body Mass Index) 31.4 kg/m2 BSA (Body Surface Area) 2.17 m2 04/16/2015 3:05pm BP Systolic Sitting Right Arm 146 mmHg BP Diastolic Sitting Right Arm 82 mmHg Heart Rate 87 /min Respiratory Rate 16 /min Height 70 inches 5'10" Weight 214.00 lb BMI (Body Mass Index) 30.7 kg/m2 BSA (Body Surface Area) 2.15 m2 01/06/2015 9:06am BP Systolic Sitting Right Arm 146 mmHg BP Diastolic Sitting Right Arm 84 mmHg Heart Rate 68 /min Respiratory Rate 16 /min Height 70 inches 5'10" Weight 212.00 lb BMI (Body Mass Index) 30.4 kg/m2 BSA (Body Surface Area) 2.14 m2 11/08/2014 9:19am BP Systolic Sitting Right Arm 110 mmHg BP Diastolic Sitting Right Arm 68 mmHg Heart Rate 47 /min Respiratory Rate 16 /min Height 70 inches 5'10" Weight 218.00 lb BMI (Body Mass Index) 31.3 kg/m2 BSA (Body Surface Area) 2.17 m2 10/02/2014 9:29am BP Systolic Sitting Right Arm 126 mmHg BP Diastolic Sitting Right Arm 78 mmHg Heart Rate 55 /min Respiratory Rate 16 /min Height 70 inches 5'10" Weight 221.00 lb BMI (Body Mass Index) 31.7 kg/m2 BSA (Body Surface Area) 2.18 m2 09/05/2014 8:42am BP Systolic Sitting Right Arm 122 mmHg BP Diastolic Sitting Right Arm 64 mmHg Heart Rate 54 /min Respiratory Rate 18 /min Height 70 inches 5'10" Weight 213.00 lb BMI (Body Mass Index) 30.6 kg/m2 BSA (Body Surface Area) 2.14 m2 07/18/2014 9:34am BP Systolic Sitting Right Arm 110 mmHg BP Diastolic Sitting Right Arm 80 mmHg Heart Rate 82 /min Respiratory Rate 16 /min Height 70 inches 5'10" Weight 209.00 lb BMI (Body Mass Index) 30.0 kg/m2 BSA (Body Surface Area) 2.13 m2 07/02/2014 9:01am BP Systolic Sitting Right Arm 132 mmHg BP Diastolic Sitting Right Arm 78 mmHg Heart Rate 82 /min Respiratory Rate 16 /min Height 70 inches 5'10" Weight 206.00 lb BMI (Body Mass Index) 29.6 kg/m2 BSA (Body Surface Area) 2.11 m2 06/10/2014 3:12pm BP Systolic Sitting Right Arm 136 mmHg BP Diastolic Sitting Right Arm 80 mmHg Heart Rate 75 /min Respiratory Rate 16 /min Height 70 inches 5'10" Weight 204.00 lb BMI (Body Mass Index) 29.3 kg/m2 BSA (Body Surface Area) 2.10 m2 04/29/2014 2:47pm BP Systolic Sitting Left Arm 124 mmHg BP Diastolic Sitting Left Arm 84 mmHg Heart Rate 95 /min Respiratory Rate 16 /min Height 70 inches 5'10" Weight 200.00 lb BMI (Body Mass Index) 28.7 kg/m2 BSA (Body Surface Area) 2.09 m2 03/29/2014 2:33pm BP Systolic Sitting Left Arm 116 mmHg BP Diastolic Sitting Left Arm 72 mmHg Heart Rate 80 /min Respiratory Rate 16 /min Height 70 inches 5'10" Weight 201.00 lb BMI (Body Mass Index) 28.8 kg/m2 BSA (Body Surface Area) 2.09 m2 01/03/2014 8:35am BP Systolic Sitting Left Arm 140 mmHg BP Diastolic Sitting Left Arm 86 mmHg Heart Rate 78 /min Respiratory Rate 16 /min Height 70 inches 5'10" Weight 213.00 lb BMI (Body Mass Index) 30.6 kg/m2 BSA (Body Surface Area) 2.14 m2 11/01/2013 8:31am BP Systolic Sitting Right Arm 130 mmHg BP Diastolic Sitting Right Arm 82 mmHg Heart Rate 72 /min Respiratory Rate 16 /min Height 70 inches 5'10" Weight 216.00 lb BMI (Body Mass Index) 31.0 kg/m2 BSA (Body Surface Area) 2.16 m2 06/07/2013 11:29am BP Systolic Sitting Right Arm 111 mmHg BP Diastolic Sitting Right Arm 68 mmHg Heart Rate 63 /min Respiratory Rate 16 /min Height 70 inches 5'10" Weight 220.00 lb BMI (Body Mass Index) 31.6 kg/m2 BSA (Body Surface Area) 2.17 m2 04/07/2010 9:31am Height 71 inches 5'11" Weight 208.00 lb 07/15/2009 1:12pm Height 69 inches 5'9" Weight 215.00 lb Results Test Date Facility Test Result H/L Range Note Laboratory test 06/02/2018 [facility] TSH 2.16 mcIU/ mL N 0.34-5.60 finding [phone] (Thyroid Stim Horm) CBC W/Automated 06/02/2018 [facility] White Blood 8.3 10^3/uL N 3.5-10.8 Diff [phone] Count Red Blood Count 4.84 10^6/uL N 4.00-5.40 Hemoglobin 15.1 g/dL N 14.0-18.0 Hematocrit 44 % N 42-52 Mean Corpuscular Volume 91 fL N 80-94 Mean Corpuscular Hemoglobin 31 pg N 27-31 Mean Corpuscular HGB Conc 34 g/dL N 31-36 Red Cell Distribution Width 14 % N 10.5-15 Platelet Count 241 10^3/uL N 150-450 Mean Platelet Volume 7.7 fL N 7.4-10.4 Abs Neutrophils 5.4 10^3/uL N 1.5-7.7 Abs Lymphocytes 1.6 10^3/uL N 1.0-4.8 Abs Monocytes 0.5 10^3/uL N 0-0.8 Abs Eosinophils 0.7 10^3/uL High 0-0.6 Abs Basophils 0.1 10^3/uL N 0-0.2 Abs Nucleated RBC 0.1 10^3/uL Granulocyte % 64.4 % Lymphocyte % 19.7 % Monocyte % 6.6 % Eosinophil % 8.6 % Basophil % 0.7 % Nucleated Red Blood Cells % 0.6 Comprehensive 06/02/2018 [facility] Sodium 141 mmol/ L N 135-145 Metabolic Panel [phone] Potassium 4.5 mmol/L N 3.5-5.0 Chloride 105 mmol/L N 101-111 Co2 Carbon Dioxide 30 mmol/L N 22-32 Anion Gap 6 mmol/L N 2-11 Glucose 107 mg/dL High 70-100 Blood Urea Nitrogen 14 mg/dL N 6-24 Creatinine 0.96 mg/dL N 0.67-1.17 BUN/Creatinine Ratio 14.6 N 8-20 Calcium 9.6 mg/dL N 8.6-10.3 Total Protein 6.5 g/dL N 6.4-8.9 Albumin 4.6 g/dL N 3.2-5.2 Globulin 1.9 g/dL Low 2-4 Albumin/Globulin Ratio 2.4 N 1-3 Total Bilirubin 0.80 mg/dL N 0.2-1.0 Alkaline Phosphatase 49 U/L N 34-104 Alt 26 U/L N 7-52 Ast 22 U/L N 13-39 Egfr Non- 79.9 >60 Egfr 96.7 >60 1 LDL Cholesterol 06/02/2018 [facility] Triglycerides 74 mg/dL 2 Profile [phone] Cholesterol 145 mg/dL 3 HDL Cholesterol 45.7 mg/dL 4 LDL Cholesterol 85 mg/dL 5 Laboratory test 06/02/2018 [facility] Magnesium 2.1 mg/dL N 1.9-2.7 finding [phone] Laboratory test 09/23/2017 N2N/CCD Import Albumin 4.5 g/dL 3.2-5.2 finding Albumin/Globulin Ratio 2.3 1 1-3 Alkaline Phosphatase 37 U/L 34-104 Alt 26 U/L 7-52 Anion Gap 6 mmol/L 2-11 Ast 19 U/L 13-39 BUN/Creatinine Ratio 11.3 1 8-20 Blood Urea Nitrogen 12 mg/dL 6-24 C Reactive Protein < 1.00 mg/L < 5.00 6 Calcium 9.4 mg/dL 8.6-10.3 Chloride 103 mmol/L 101-111 Co2 Carbon Dioxide 30 mmol/L 22-32 Creatinine 1.06 mg/dL 0.67-1.17 Egfr 91.7 1 >60 7 Egfr Non- 71.3 1 >60 Erythrocyte Sed Rate 0 mm/Hr 0-20 8 Globulin 2.0 g/dL 2-4 Glucose 106 mg/dL High 70-100 Potassium 4.0 mmol/L 3.5-5.0 Sodium 139 mmol/L 133-145 Total Bilirubin 0.80 mg/dL 0.2-1.0 Total Protein 6.5 g/dL 6.4-8.9 CBC Auto Diff 09/23/2017 N2N/CCD Import Abs Basophils 0.1 10^3/uL 0-0.2 Abs Eosinophils 0.3 10^3/uL 0-0.6 Abs Lymphocytes 1.4 10^3/uL 1.0-4.8 Abs Monocytes 0.6 10^3/uL 0-0.8 Abs Neutrophils 4.4 10^3/uL 1.5-7.7 Abs Nucleated RBC 0 10^3/uL Basophil % 2.1 % High 0-2 Eosinophil % 4.8 % 0-6 Granulocyte % 64.4 % 38-83 Hematocrit 42 % 42-52 Hemoglobin 14.6 g/dL 14.0-18.0 Lymphocyte % 20.7 % Low 25-47 Mean Corpuscular HGB Conc 35 g/dL 31-36 Mean Corpuscular Hemoglobin 31 pg 27-31 Mean Corpuscular Volume 91 fL 80-94 Mean Platelet Volume 8.1 um3 7.4-10.4 Monocyte % 8.0 % High 0-7 Nucleated Red Blood Cells % 0 1 Platelet Count 230 10^3/uL 150-450 Red Blood Count 4.65 10^6/uL 4.0-5.4 Red Cell Distribution Width 13 % 10.5-15 White Blood Count 6.9 10^3/uL 3.5-10.8 Laboratory test 07/05/2017 N2N/CCD Import Angiotensin 38 U/L 8 - 53 9 finding Converting Enzyme Anti-Nuclear Antibody 1.6 U High 10 C Reactive Protein < 1.00 mg/L < 5.00 11 Cyclic Citrullinated Peptide <15.6 U 12 Erythrocyte Sed Rate 7 mm/Hr 0-20 Hla B27 Negative 13 Hla B27 Interp See Comment 14 Immunoglobulin A 232 mg/dL 61 - 356 Immunoglobulin G 722 mg/dL 767 - 1590 15 Immunoglobulin M 89 mg/dL 37 - 286 Interpretation See Comment 16 Rheumatoid Factor <15 Iu/ml <15 17 TSH (Thyroid Stim Horm) 1.79 mcIU/mL 0.34-5.60 Uric Acid 5.5 mg/dL 4.4-7.6 Anca AB Ser If 07/05/2017 N2N/CCD Import C-Anca Negative Negative P-Anca Negative Negative 18 Cardiolipin Igg/Igm 07/05/2017 N2N/CCD Import Phospholipid Ab IgG < 9.4 GPL 19 Phospholipid Ab IgM, S < 9.4 MPL 20 Jerica Igg AB Reflex 07/05/2017 N2N/CCD Import Aleida-1 Antibody <0.2 U 21 SS-A/Ro Antibody <0.2 U 22 SS-B/La Antibody <0.2 U 23 Scl-70 (Scleroderma) Antibody <0.2 U 24 Sm (Grewal) IgG Antibody <0.2 U 25 U1-nRNP Antibody <0.2 U 26 Vitamin B12 And 07/05/2017 N2N/CCD Import Folic Acid > 20.00 ng/mL > 3.99 Folate Serum (Folate) Vitamin B12 629 pg/mL 180-914 27 CBS W/Automated 05/25/2017 [facility] White Blood 8.5 10^3/uL N 3.5-10.8 Diff [phone] Count Red Blood Count 4.66 10^6/uL N 4.0-5.4 Hemoglobin 14.6 g/dL N 14.0-18.0 Hematocrit 43 % N 42-52 Mean Corpuscular Volume 93 fL N 80-94 Mean Corpuscular Hemoglobin 31 pg N 27-31 Mean Corpuscular HGB Conc 34 g/dL N 31-36 Red Cell Distribution Width 14 % N 10.5-15 Platelet Count 238 10^3/uL N 150-450 Mean Platelet Volume 8 um3 N 7.4-10.4 Abs Neutrophils 4.8 10^3/uL N 1.5-7.7 Abs Lymphocytes 2.5 10^3/uL N 1.0-4.8 Abs Monocytes 0.7 10^3/uL N 0-0.8 Abs Eosinophils 0.4 10^3/uL N 0-0.6 Abs Basophils 0.1 10^3/uL N 0-0.2 Abs Nucleated RBC 0.01 10^3/uL Granulocyte % 56.1 % N 38-83 Lymphocyte % 29.4 % N 25-47 Monocyte % 8.4 % N 1-9 Eosinophil % 4.8 % N 0-6 Basophil % 1.3 % N 0-2 Nucleated Red Blood Cells % 0.1 Basic Metabolic 05/25/2017 [facility] Sodium 138 mmol /L N 133-145 Panel [phone] Potassium 4.1 mmol/L N 3.5-5.0 Chloride 103 mmol/L N 101-111 Co2 Carbon Dioxide 31 mmol/L N 22-32 Anion Gap 4 mmol/L N 2-11 Glucose 101 mg/dL High 70-100 Blood Urea Nitrogen 13 mg/dL N 6-24 Creatinine 0.95 mg/dL N 0.67-1.17 BUN/Creatinine Ratio 13.7 N 8-20 Calcium 9.1 mg/dL N 8.6-10.3 Egfr Non- 81.1 >60 Egfr 104.4 >60 28 Liver Function 05/25/2017 [facility] Total Protein 6.3 g/dL Low 6.4-8.9 Tests [phone] Albumin 4.3 g/dL N 3.2-5.2 Globulin 2.0 g/dL N 2-4 Albumin/Globulin Ratio 2.2 N 1-3 Total Bilirubin 1.10 mg/dL High 0.2-1.0 Direct Bilirubin 0.20 mg/dL High 0.03-0.18 Indirect Bilirubin 0.9 mg/dL N 0.3-1.0 Alkaline Phosphatase 39 U/L N 34-104 Alt 31 U/L N 7-52 Ast 21 U/L N 13-39 CBS W/Automated 07/26/2016 [facility] White Blood 9.8 K/uL N 3.4-10.5 [address] [place] [address] [phone] Red Blood Count 4.76 M/uL N 4.20-5.80 Hemoglobin 15.3 gm/dL N 12.8-17.0 Hematocrit 43.3 % N 38.0-48.0 Mean Cell Volume 91.0 fl N 80.0-96.0 Mean Corpuscular HGB 32.1 pg N 27.0-33.0 Mean Corpuscular HGB Conc 35.3 g/dL N 31.7-36.0 Platelet Count 250 K/uL N 150-400 Red Cell Distri Width SD 44.2 fl N 36-51 Red Cell Distri Width %CV 13.6 % N 11.6-15.8 Mean Platelet Volume 9.5 fL N 6.6-10.6 Neut% 57.2 % N 33.0-73.0 Lymph % 29.1 % N 20.0-42.0 [place] % 8.0 % N 0.0-10.0 Eo% 5.3 % High 0.0-5.0 Bas% 0.4 % N 0.1-1.0 Neut# 5.57 K/uL N 1.8-7.0 Lymph # 2.84 K/uL N 1.0-4.0 [place] # 0.78 K/uL N 0.0-0.8 Eos # 0.52 K/uL High 0.0-0.5 Baso # 0.04 K/uL Low 0.1-0.2 Comprehensive Metabolic 07/26/2016 [facility] Glucose 106 mg/dL N 74-[address] [place] [address] [phone] BUN 12 mg/dL N 7-18 Creatinine 0.9 mg/dL N 0.6-1.3 Glom Filtration Rate, Estimate >60 mL/min N >60 If >60 mL/min N >60 30 BUN/Creat 13.3 ratio N Sodium 143 mmol/L N 136-145 Potassium 3.9 mmol/L N 3.5-5.1 Chloride 106 mmol/L N 98-107 Carbon Dioxide 29 mmol/L N 21-32 Anion Gap 8 mEq/L N 8-16 Calcium 8.7 mg/dL N 8.5-10.1 Total Protein 7.0 g/dL N 6.4-8.2 Albumin 3.7 g/dL N 3.4-5.0 Globulin 3.3 g/dL N 1.9-4.3 Alb/Glob 1.1 ratio N Bilirubin,Total 0.7 mg/dL N 0.2-1.0 Sgot/Ast 19 U/L N 15-37 SGPT/Alt 38 U/L N 12-78 Alkaline Phosphatase 57 U/L N 45-117 LDL Cholesterol Profile 07/26/2016 [facility] Cholesterol 142 mg/dL N <200 31 [address] [place] [address] [phone] Triglycerides 93 mg/dL N <150 32 HDL Cholesterol 42 mg/dL N >40 33 LDL-Cholesterol 81 mg/dL N < 100 34 Laboratory test finding 07/26/2016 [facility] Magnesium 2.1 mg/dL N 1.8-2.4 [address] [place] [address] [phone] Basic Metabolic Panel 07/15/2015 [facility] Glucose 103 mg/dL 74-106 [address] [place], [place] [id number] [phone] BUN 14 mg/dL 7-18 Creatinine 0.9 mg/dL 0.6-1.3 Glom Filtration Rate, Estimate >60 mL/min >60 If >60 mL/min >60 35 BUN/Creat 15.5 ratio Sodium 141 mmol/L 136-145 Potassium 4.3 mmol/L 3.5-5.1 Chloride 107 mmol/L 98-107 Carbon Dioxide 29 mmol/L 21-32 Anion Gap 5 mEq/L Low 8-16 Calcium 8.7 mg/dL 8.5-10.1 CBC 07/15/2015 [facility] White Blood Count 7.1 K/uL 3.4-10.5 [address] [place] [address] [phone] Red Blood Count 4.66 M/uL 4.20-5.80 Hemoglobin 14.9 gm/dL 12.8-17.0 Hematocrit 43.0 % 38.0-48.0 Mean Cell Volume 92.3 fl 80.0-96.0 Mean Corpuscular HGB 32.0 pg 27.0-33.0 Mean Corpuscular HGB Conc 34.7 g/dL 31.7-36.0 Platelet Count 229 K/uL 150-400 Red Cell Distri Width %CV 13.4 % 11.6-15.8 Mean Platelet Volume 9.6 fL 6.6-10.6 Protime 07/15/2015 [facility] Protime 14.5 seconds 12.1-14.[address] [place], [place] [id number] [phone] Inr 1.1 0.9-1.1 36 Laboratory test 07/15/2015 [facility] Act Partial 36.4 High 23.9-34.3 [address] [place] [address] Time [phone] Laboratory test 02/10/2015 [facility] Free T4 0.71 ng /mL N 0.61-1.12 finding [phone] TSH (Thyroid Stimulating Horm) 5.15 ?IU/mL N 0.34-5.60 Comprehensive 02/10/2015 [facility] Sodium 138 mmol/ L N 133-145 Metabolic Panel [phone] Potassium 3.9 mmol/L N 3.5-5.0 Chloride 103 mmol/L N 101-111 Co2 Carbon Dioxide 29 mmol/L N 22-32 Anion Gap 6 mmol/L N 2-11 Glucose 115 mg/dL High 70-100 Blood Urea Nitrogen 15 mg/dL N 6-24 Creatinine 1.05 mg/dL N 0.67-1.17 BUN/Creatinine Ratio 14.3 N 8-20 Calcium 8.8 mg/dL N 8.6-10.3 Total Protein 6.2 g/dL Low 6.4-8.9 Albumin 4.4 g/dL N 3.2-5.2 Globulin 1.8 g/dL Low 2-4 Albumin/Globulin Ratio 2.4 N 1-3 Total Bilirubin 0.50 mg/dL N 0.2-1.0 Alkaline Phosphatase 50 U/L N 34-104 Alt 36 U/L N 7-52 Ast 22 U/L N 13-39 Egfr Non- 72.8 N >60 Egfr 93.6 N >60 38 Liver Function 08/09/2014 [facility] Total Protein 6.5 g/dL N 6.4-8.9 Tests [phone] Albumin 4.3 g/dL N 3.2-5.2 Globulin 2.2 g/dL N 2-4 Albumin/Globulin Ratio 2.0 N 1-3 Total Bilirubin 0.30 mg/dL N 0.2-1.0 Direct Bilirubin 0.10 mg/dL N 0.03-0.18 Indirect Bilirubin 0.2 mg/dL Low 0.3-1.0 Alkaline Phosphatase 56 U/L N 34-104 Alt 27 U/L N 7-52 Ast 20 U/L N 13-39 LDL Cholesterol 08/09/2014 [facility] Triglycerides 147 mg/dL N 39 Profile [phone] Cholesterol 147 mg/dL N 40 HDL Cholesterol 38.1 mg/dL N 41 LDL Cholesterol 80 mg/dL N 42 Laboratory 08/09/2014 [facility] TSH (Thyroid 2.96 N 0.34-5.60 test finding [phone] Stimulating IU/mL Horm) Laboratory 07/15/2014 [facility] Inr 1.3 test finding Laboratory 07/12/2014 [facility] Inr 1.39 High 0.85 -1.06 test finding [phone] PT W/Inr 07/05/2014 [facility] Inr 3.51 High 0.85- 1.06 [phone] PT W/Inr 06/20/2014 [facility] Inr 3.51 High 0.85- 1.06 [phone] Laboratory 06/14/2014 [facility] TSH (Thyroid 3.22 N 0.34-5.60 test finding [phone] Stimulating IU/mL Horm) Laboratory 06/14/2014 [facility] Inr 2.52 High 0.85 -1.06 test finding [phone] Lipid Profile 06/14/2014 [facility] Triglycerides 126 N 43 (Trig/Chol/HDL [phone] mg/dL ) Cholesterol 204 mg/dL N 44 HDL Cholesterol 45.1 mg/dL N 45 LDL Cholesterol 134 mg/dL N 46 Liver Function 06/14/2014 [facility] Total Protein 6.8 g/dL N 6.4-8.9 Panel [phone] Albumin 4.4 g/dL N 3.2-5.2 Globulin 2.4 g/dL N 2-4 Albumin/Globulin Ratio 1.8 N 1-3 Total Bilirubin 0.50 mg/dL N 0.2-1.0 Direct Bilirubin 0.10 mg/dL N 0.03-0.18 Indirect Bilirubin 0.4 mg/dL N 0.3-1.0 Alkaline Phosphatase 48 U/L N 34-104 Alt 28 U/L N 7-52 Ast 22 U/L N 13-39 PT W/Inr 05/23/2014 [facility] Inr 2.96 High 0.85- 1.06 [phone] PT W/Inr 05/09/2014 [facility] Inr 2.80 High 0.85- 1.06 [phone] PT W/Inr 05/02/2014 [facility] Inr 2.80 High 0.85- 1.06 [phone] PT W/Inr 04/18/2014 [facility] Inr 3.06 High 0.85- 1.06 [phone] PT W/Inr 04/08/2014 [facility] Inr 3.85 High 0.85- 1.06 [phone] PT W/Inr 04/01/2014 [facility] Inr 1.30 High 0.85- 1.06 [phone] Laboratory 03/28/2014 [facility] Inr 0.98 N 0.85- 1.06 47, test finding [phone] PT W/Inr 03/21/2014 [facility] Inr 3.02 High 0.85- 1.06 [phone] PT W/Inr 03/13/2014 [facility] Inr 2.00 High 0.85- 1.06 [phone] Laboratory 02/18/2014 [facility] Inr 0.95 0.85- 1.06 test finding [phone] PT W/Inr 02/07/2014 [facility] Inr 2.84 High 0.85- 1.06 [phone] Protime 01/31/2014 [facility] Inr 2.32 High 0.85- 1.06 [phone] PT W/Inr 01/24/2014 [facility] 1.8 Normalized Ratio PT W/Inr 01/09/2014 [facility] 1.9 Normalized Ratio 1 Because ethnic data is not always readily [...] 15-29 5 Kidney failure <15 (or dialysis) 2 Desirable: <150 Borderline High: 150-199 High: 200-499 Very High: >500 3 Desirable: <200 Borderline High: 200-239 High: >239 4 Low: <40 Desirable: 40-60 High: >60 5 Desirable: <100 Near Optimal: 100-129 Borderline High: 130-159 High: 160-189 Very High: >189 6 Acute inflammation: >10.00 7 Because ethnic data is not always readily [...] 15-29 5 Kidney failure <15 (or dialysis) 8 Please check labs 2 days before the visit 9 Test Performed by: [place] [address] 10 Interpretation: Weak Positive (1.1-2.9) REFERENCE VALUE <=1.0 (Negative) 11 Acute inflammation: >10.00 12 REFERENCE VALUE <20.0 (Negative) 13 REFERENCE VALUE Not Applicable 14 RESULT: HLA-B27 antigen was not detected. ADDITIONAL INFORMATION Method: Flow Cytometry Performing Laboratory CLIA# [id number] Test Performed by: [place] [address] 15 Test Performed by: [place] [address] 16 Tests for antibodies to dsDNA and JERICA antigens are not performed automatically unless the SHELBY result is > or= 3.0 U. Studies performed at [facility] indicate that positive SHELBY results <3.0 U are rarely accompanied by positive second order tests. Test Performed by: [place] [address] 17 Test Performed by: [address] [address] 18 Negative for cANCA and pANCA patterns by immunofluorescence. ADDITIONAL INFORMATION This test was developed and its performance characteristics determined by [facility] in a manner consistent with CLIA requirements. This test has not been cleared or approved by the U.S. Food and Drug Administration. Test Performed by: [facility] - [address] [address] 19 REFERENCE VALUE <15.0 (Negative) Test Performed by: [facility] - [address] [address] 20 REFERENCE VALUE <15.0 (Negative) 21 REFERENCE VALUE <1.0 (Negative) Test Performed by: [facility] - [address] [address] 22 REFERENCE VALUE <1.0 (Negative) 23 REFERENCE VALUE <1.0 (Negative) 24 REFERENCE VALUE <1.0 (Negative) 25 REFERENCE VALUE <1.0 (Negative) 26 REFERENCE VALUE <1.0 (Negative) 27 Normal Range 180 to 914 Indeterminate Range 145 to 180 Deficient Range <145 28 Because ethnic data is not always readily [...] 15-29 5 Kidney failure <15 (or dialysis) 29 I48.1 30 Note: Persistent reduction for 3 months or more in an eGFR <60 mL/min/1.73 m2 defines CKD. Patients with eGFR values >/=60 mL/min/1.73 m2 may also have CKD if evidence of persistent proteinuria is present. The original MDRD equation for estimated GFR is not valid for patients less than 18 years of age. Additional information may be found at www.kdoqi.org. 31 Reference Guidelines*: Desirable: ........... < 200 mg/dL Borderline High: ..... 200-239 mg/dL High: ................ >=240 mg/dL * The National Cholesterol Education Program (NCEP) 32 Reference Guidelines*: Normal: ............. < 150 mg/dL Borderline High: .... 150-199 mg/dL High: ............... 200-499 mg/dL Very High: .......... > 500 mg/dL * Source: National Cholesterol Education Program (NCEP) 33 Reference Guidelines*: Low HDL: ..... < 40 mg/dL Normal: ..... 40-60 mg/dL Desirable: ... > 60 mg/dL *The National Cholesterol Education Program(NCEP) 34 Reference Guidelines*: Optimal:........... <100 mg/dL Near Optimal....... 100-129 mg/dL Borderline High.... 130-159 mg/dL High............... 160-189 mg/dL Very High.......... >=190 mg/dL * Source: National Cholesterol Education Program (NCEP) 35 Note: Persistent reduction for 3 months or more in an eGFR <60 mL/min/1.73 m2 defines CKD. Patients with eGFR values >/=60 mL/min/1.73 m2 may also have CKD if evidence of persistent proteinuria is present. The original MDRD equation for estimated GFR is not valid for patients less than 18 years of age. Additional information may be found at www.kdoqi.org. 36 THERAPEUTIC INR RANGE: 2.0 - 3.0 DVT, Pulmonary embolus, prophylaxis against venous thrombosis or systemic embolization in high risk patients. 2.5 - 3.5 Mechanical heart valves 37 Is patient on heparin protocol? N Is patient on anticoagulants? Unknown QUERY: Anticoagulant Therapy? QUERY: Date of Last Dose: QUERY: Time of Last Dose: 38 Because ethnic data is not always readily [...] 15-29 5 Kidney failure <15 (or dialysis) 39 Desirable <150 Borderline high 150-199 High 200-499 Very High >500 40 Desirable <200 Borderline high 200-239 High >239 41 Low <40 Desirable: 40-60 High: >60 42 Desirable <100 Near Optimal 100-129 Borderline high 130-159 High 160-189 Very High >189 43 Desirable <150 Borderline high 150-199 High 200-499 Very High >500 44 Desirable <200 Borderline high 200-239 High >239 45 Low <40 Desirable: 40-60 High: >60 46 Desirable <100 Near Optimal 100-129 Borderline high 130-159 High 160-189 Very High >189 47 CALL RESULTS TO [facility] STAT [id number] 48 Verbal to noe by at 1431 on 03/28/14. Results read back accurately. Procedures Date Code Description Status 12/19/2018 09814 EKG-Tracing And Report Completed 11/10/2017 76840 EKG-Tracing And Report Completed 06/23/2017 25814 Echocardiogram Complete Completed 07/26/2016 17971 EKG-Tracing And Report Completed 07/28/2015 62569 Application long arm splint Completed 07/18/2015 39269 Reinsertion of ruptured biceps or triceps tendon distal Completed w/wo tend 07/18/2015 04003 Reinsertion of ruptured biceps or triceps tendon distal Completed w/wo tend 07/18/2015 02750 Reinsertion of ruptured biceps or triceps tendon distal Completed w/wo tend 07/15/2015 00771 EKG Interpretation And Report Only Completed 07/07/2015 88848 EKG-Tracing And Report Completed 05/23/2015 98906 EKG-Tracing And Report Completed 04/16/2015 64680 EKG-Tracing And Report Completed 01/06/2015 67531 EKG-Tracing And Report Completed 12/04/2014 86609 EKG Interpretation And Report Only Completed 12/04/2014 76994 EKG Interpretation And Report Only Completed 12/04/2014 34548 Cardioversion External Completed 11/19/2014 99280 EKG-Tracing And Report Completed 11/08/2014 50128 EKG-Tracing And Report Completed 10/02/2014 71647 EKG-Tracing And Report Completed 09/05/2014 86337 Event Monitor Inter/Review Only Completed 09/05/2014 05366 EKG-Tracing And Report Completed 07/02/2014 36724 EKG-Tracing And Report Completed 06/21/2014 92904 Holter Monitor 24HR Inter/Report Completed 06/21/2014 18967 Holter Monitor 24HR Inter/Report Completed 06/17/2014 08943 Cardioversion External Completed 06/17/2014 38492 EKG-Tracing And Report Completed 06/17/2014 96696 EKG-Tracing And Report Completed 06/17/2014 25088 EKG Interpretation And Report Only Completed 06/10/2014 78958 EKG-Tracing And Report Completed 04/29/2014 19985 EKG-Tracing And Report Completed 11/16/2013 95476 Echocardiogram Complete Completed 11/01/2013 14820 EKG-Tracing And Report Completed 05/06/201025696 Asp./Injection major joint Completed 04/07/2010 Asp./Injection major joint Completed 07/04/2006 79716602 Colonoscopy Completed Encounters Type Date Location Provider Dx Diagnosis Office Visit 12/19/2018 Cardiology Office Nikita Grewal MD I48.1 Persistent atrial 9:15a fibrillation I10 Essential (primary) hypertension E78.2 Mixed hyperlipidemia S46.201D Unsp injury of musc/fasc/tend prt biceps, right arm, subs Office Visit 06/02/2018 9:00a Cardiology Office Sharad I48.1 Persistent atrial Marlyss B., PA fibrillation I10 Essential (primary) hypertension E78.2 Mixed hyperlipidemia I34.0 Nonrheumatic mitral (valve) insufficiency J20.9 Acute bronchitis, unspecified Office Visit 11/10/2017 Cardiology Ingrid Sutherland Z01.810 Encounter for 8:40a Office RALEIGH Cervantes, preprocedural SENIOR ASSET MANAGER cardiovascular examination I34.0 Nonrheumatic mitral (valve) insufficiency I48.1 Persistent atrial fibrillation I10 Essential (primary) hypertension E78.2 Mixed hyperlipidemia Office Visit 06/22/2017 Cardiology Ingrid Sutherland I48.1 Persistent atrial 8:40a Office RALEIGH Cervantes, fibrillation SENIOR ASSET MANAGER I10 Essential (primary) hypertension E78.2 Mixed hyperlipidemia I34.0 Nonrheumatic mitral (valve) insufficiency Office Visit 12/29/2016 Cardiology Ingrid Sutherland I48.1 Persistent atrial 8:00a Office Helen, MSN, fibrillation SENIOR ASSET MANAGER I10 Essential (primary) hypertension E78.2 Mixed hyperlipidemia I34.0 Nonrheumatic mitral (valve) insufficiency Office Visit 07/26/2016 8:20a Cardiology Office Nikita Grewal I48.1 Persistent atrial MD fibrillation I10 Essential (primary) hypertension E78.2 Mixed hyperlipidemia Z79.01 watermelon inspector (current) use of anticoagulants Office Visit 01/23/2016 8:20a Cardiology Office Fabi Medrano I48.1 Persistent atrial A., ANP fibrillation I10 Essential (primary) hypertension E78.2 Mixed hyperlipidemia Z79.01 watermelon inspector (current) use of anticoagulants Office Visit 09/10/2015 Adalid Melton S46.201D Unsp injury of 1:00p Office Bindu Elizabeth musc/fasc/tend prt biceps, right arm, subs Office Visit 09/08/2015 Cardiology Fabi Medrano I48.1 Persistent atrial 8:30a Office A., ANP fibrillation I10 Essential (primary) hypertension E78.2 Mixed hyperlipidemia Z79.01 watermelon inspector (current) use of anticoagulants Z01.810 Encounter for preprocedural cardiovascular examination Office Visit 07/16/2015 11:30a Cardiology Office Fabi Medrano I48.1 Persistent atrial A., ANP fibrillation I10 Essential (primary) hypertension E78.2 Mixed hyperlipidemia Z79.01 halfway (current) use of anticoagulants Office Visit 07/07/2015 3:30p Cardiology Office Fabi Medrano I48.1 Persistent atrial A., ANP fibrillation I10 Essential (primary) hypertension E78.2 Mixed hyperlipidemia Z79.01 halfway (current) use of anticoagulants F51.8 Oth sleep disord not due to a sub or known physiol cond Z01.810 Encounter for preprocedural cardiovascular examination Office Visit 07/02/2015 Orthopaedic Murtaza S46.291A Inj muscle, 1:45p Office Nazanin, PA fascia and tendon of prt biceps, right arm, init Office Visit 05/23/2015 Cardiology Office Fabi Medrano I48.1 Persistent atrial 8:50a A., ANP fibrillation I10 Essential (primary) hypertension E78.2 Mixed hyperlipidemia Z79.01 watermelon inspector (current) use of anticoagulants F51.8 Oth sleep disord not due to a sub or known physiol cond Office Visit 04/16/2015 3:00p Cardiology Office Fabi Medrano I48.1 Persistent atrial A., ANP fibrillation I10 Essential (primary) hypertension E78.2 Mixed hyperlipidemia Z79.01 watermelon inspector (current) use of anticoagulants F51.8 Oth sleep disord not due to a sub or known physiol cond Office Visit 01/06/2015 8:50a Cardiology Office Fabi Medrano 427.31 Atrial A., ANP Fibrillation 401.1 Hypertension Benign 272.2 Hyperlipidemia Mixed V58.61 Anticoagulants Chcf (Current) Use Encounter 307.47 Sleep Stage Or Sleep Arousal Dysfunction Other Office Visit 11/08/2014 9:10a Cardiology Office Fabi Medrano 427.31 Atrial A., ANP Fibrillation 401.1 Hypertension Benign 272.2 Hyperlipidemia Mixed V58.61 Anticoagulants Chcf (Current) Use Encounter 307.47 Sleep Stage Or Sleep Arousal Dysfunction Other Office Visit 10/02/2014 Cardiology Ingrid Sutherland 427.31 Atrial 9:20a Office RALEIGH Cervantes, Fibrillation SENIOR ASSET MANAGER 427.32 Atrial Flutter 401.1 Hypertension Benign 272.2 Hyperlipidemia Mixed V58.61 Anticoagulants Subgrade Tester (Current) Use Encounter 307.47 Sleep Stage Or Sleep Arousal Dysfunction Other Office Visit 09/05/2014 Cardiology Ingrid Sutherland 427.31 Atrial 8:40a Office RALEIGH Cervantes, Fibrillation SENIOR ASSET MANAGER 427.32 Atrial Flutter 401.1 Hypertension Benign 272.2 Hyperlipidemia Mixed Office Visit 07/18/2014 9:30a Cardiology Office Avel Negron 427.31 Chari Elias MD, PhD Fibrillation 401.1 Hypertension Benign 272.2 Hyperlipidemia Mixed 427.32 Atrial Flutter Office Visit 07/02/2014 9:00a Cardiology Office Fabi Medrano 427.31 Atrial A., ANP Fibrillation 401.1 Hypertension Benign 272.2 Hyperlipidemia Mixed 307.47 Sleep Stage Or Sleep Arousal Dysfunction Other V58.61 Anticoagulants Chcf (Current) Use Encounter Office Visit 06/10/2014 3:10p Cardiology Office Fabi Medrano 427.31 Atrial A., ANP Fibrillation 401.1 Hypertension Benign V17.49 Family HX Of Other Cardiovascular Diseases 272.2 Hyperlipidemia Mixed 307.47 Sleep Stage Or Sleep Arousal Dysfunction Other Office Visit 04/29/2014 2:50p Cardiology Office Avel Negron 427.José Elias MD, PhD Fibrillation 401.1 Hypertension Benign V17.49 Family HX Of Other Cardiovascular Diseases 272.2 Hyperlipidemia Mixed Office Visit 03/29/2014 2:30p Cardiology Office Avel Negron 427.31 Chari Elias MD, PhD Fibrillation 415.19 Pulmonary Embolism And Infarction Other 401.1 Hypertension Benign V17.49 Family HX Of Other Cardiovascular Diseases 272.2 Hyperlipidemia Mixed Office Visit 02/15/2014 11:00a Cardiology Office CastilloFabi velázquez 427.31 Atrial A., ANP Fibrillation Office Visit 01/03/2014 8:30a Cardiology Office Fabi Medrano 427.31 Atrial A., ANP Fibrillation 415.19 Pulmonary Embolism And Infarction Other 401.1 Hypertension Benign V17.49 Family HX Of Other Cardiovascular Diseases Office Visit 11/01/2013 8:40a Cardiology Office Avel Negron 427.31 Chari Elias MD, PhD Fibrillation 453.42 DVT/Embolism Distal Lower Extremity 401.1 Hypertension Benign V17.49 Family HX Of Other Cardiovascular Diseases Office Visit 06/07/2013 10:30a Surgical Tanner, 709.9 Skin & Office Marley Almaraz M.D. Tissue Disorders Unspec Plan of Treatment Future Appointment(s):06/15/2019 9:40 am - Jayashree Orourke PA at Cardiology [facility]8612/19/2018 - Nikita Grewal MDI48.1 Persistent atrial fibrillationComments:Rate controlled. Asymptomatic. Anticoagulated. Pt advised that if OAC needs to be held due to leg bruising, no bridging needed for short term interruption of therapy.I10 Essential (primary) hypertensionComments: Uncontrolled today likely due to leg discomfort. Usually well controlled. Needs to use CPAP more faithfully and check BPs at homeE78.2 Mixed hyperlipidemiaComments:Had labs in May with great LDL controlOn statin. No side effects reported.S46.201D Unspecified injury of muscle, fascia and tendon of other parts ofComments:Normal perfusion, reports actual improvement. Encouraged to go to ED if unable to get to see ortho and symptoms worsening rather than improving.AllFollow up:6 months. Sooner appt if symptoms arise.
--- OUTSIDE RECORDS SUMMARY | 2019-01-18 07:16 | XMS REPORT | Continuity of Care Document ---
:1955 External Reference #:[id number] Author Name Nikita Grewal MD Address [address] [place] [address] Care Team Providers Name Role Phone Glenn Hewitt MD Care Team Information Director Sports Unavailable Glenn Hewitt MD Primary Care Physician Unavailable Payers Date Identification Numbers Payment Provider Subscriber Effective: 2014 Policy Number: [id number] Ramakrishnaus Lillian Moreno PayID: [id number] [address] [address] [place] [address] Problems Active Problems Provider Date Disorder of skin and/or Kashmir Hart M.D. Onset: 06/07/2013 subcutaneous tissue Atrial fibrillation Fabi Medrano, ANP Onset: 01/03/2014 Pulmonary embolism Fabi Medrano ANP Onset: 01/03/2014 Benign essential hypertension Fabi Medrano, ANP Onset: 01/03/2014 FH: Cardiovascular disease Fabi Medrano ANP Onset: 01/03/2014 Mixed hyperlipidemia Avel Negron MD, PhD Onset: 03/31/2014 Sleep dysfunction with sleep stage Fabi Mderano ANP Onset: 06/13/2014 disturbance Anticoagulant agent Fabi Medrano, ANP Onset: 11/10/2014 Atrial flutter Ingrid Sutherland, MSN, SENIOR DESIGNER/ART DIRECTOR Onset: 11/10/2014 Essential hypertension Fabi Medrano, ANP Onset: 04/16/2015 Sleep disorder Fabi Medrano ANP Onset: 04/16/2015 Injury of shoulder region [...] Patient follows no dietary restrictions 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 ADL's/IADL's Independent with all ADL's Tobacco [...] Humphries 08/01/2014 10mg Tablets by mouth every M., MOral, [facility] day Xarelto take one tablet 90tabs I48.1 Yusef Humphries 07/18/2014 20mg Tablets by mouth every M., MOral, [facility] evening Zolpidem Tartrate 1 po qd [...] Ingrid Sutherland 06/22/2017 - 20mg every day RALEIGH Cervantes, SENIOR DESIGNER/ART DIRECTOR 08/26/2017 Tablets I48.1 Bystolic 1 by mouth every 90tabs I10 Nikita Grewal MD 12/29/2016 - 10mg Tablets day 06/22/2017 I48.1 Hydrochlorothiazide 1 by mouth 90caps I10 Nikita Grewal, 07/16/2015 - 12.5mg Capsules every day 01/23/2016 Bystolic 1 by mouth 90tabs I10 Nikita Grewal, 07/16/2015 - 5mg Tablets every day 12/29/2016 I48.1 [place] 1-2 by mouth 60tabs Glenn Melton, 07/14/2015 - 5-325mg Tablets every 4-6 hour M.D. 07/28/2015 as needed pain Metoprolol Succinate 1 by mouth 90tabs I48.1 Nikita Grewal MD 04/16/2015 - ER every day 09/08/2015 50mg Tablets ER 24HR Metoprolol Succinate 1/2 tablet by 427.31 Ingrid Sutherland 10/02/2014 - ER mouth every day RALEIGH Cervantes, 11/08/2014 100mg Tablets ER SENIOR DESIGNER/ART DIRECTOR 24HR 401.1 Amiodarone HCL 1 by mouth every 90tabs I48.1 Ingrid Sutherland 09/05/2014 - day RALEIGH Cervantes, 04/16/2015 200mg Tablets SENIOR DESIGNER/ART DIRECTOR Lipitor 1 by mouth every 30tabs 272.2 Avel Negron, 07/02/2014 - 10mg day , PhD Unknown Tablets Amiodarone HCL 1 by mouth every 90tabs 427.31 Avel Negron, 04/29/2014 - day MD, PhD 08/08/2014 200mg Tablets Coumadin two tabs [...] kg/m2 BSA (Body Surface Area) 2.12 m2 [place] body weight in kilograms 73 kg O2 Saturation Level with Exercise 99 % 06/02/2018 9:00am BP Systolic Sitting Left Arm 132 mmHg BP Diastolic Sitting Left Arm 78 mmHg Heart Rate 66 /min Respiratory Rate 18 /min Height 69 inches 5'9" Weight 206.00 lb BMI (Body Mass Index) 30.4 kg/m2 BSA (Body Surface Area) 2.09 m2 [place] body weight in kilograms 73 kg O2 % BldC Oximetry 96 % Ora 11/10/2017 8:59am BP Systolic Sitting Left Arm 146 mmHg BP Diastolic Sitting Left Arm 88 mmHg Heart Rate 72 /min Respiratory Rate 16 /min Height 69 inches 5'9" Weight 205.00 lb BMI (Body Mass Index) 30.3 kg/m2 BSA (Body Surface Area) 2.09 m2 [place] body weight in kilograms 73 kg 06/22/2017 [...] kg/m2 BSA (Body Surface Area) 2.16 m2 [place] body weight in kilograms 73 kg 07/26/2016 [...] Date Facility Test Result H/L Range Note CBC 06/02/2018 [facility] White Blood 8.3 10^3/uL N 3.5-10.8 W/Automated [phone] Count Diff Red Blood Count 4.84 10^6/uL N 4.00-5.40 [...] Red Blood Cells % 0.6 Comprehensive 06/02/2018 [facility] Sodium 141 mmol/ L N 135-145 Metabolic Panel [phone] Potassium 4.5 mmol/L N 3.5-5.0 Chloride 105 [...] Non- 79.9 >60 Egfr 96.7 >60 1 Laboratory test 06/02/2018 [facility] Magnesium 2.1 mg/dL N 1.9-2.7 finding [phone] LDL Cholesterol 06/02/2018 [facility] Triglycerides 74 mg/dL 2 Profile [phone] Cholesterol 145 mg/dL 3 HDL Cholesterol 45.7 mg/dL 4 LDL Cholesterol 85 mg/dL 5 Laboratory test 06/02/2018 [facility] TSH (Thyroid 2.16 mcIU/mL N 0.34-5.60 finding [phone] Stim Horm) Laboratory test 09/23/2017 N2N/CCD Import Albumin 4.5 [...] 10.5-15 White Blood Count 6.9 10^3/uL 3.5-10.8 Vitamin B12 And 07/05/2017 N2N/CCD Import Folic Acid > 20.00 ng/mL > 3.99 Folate Serum (Folate) Vitamin B12 629 pg/mL [phone] Jerica Igg AB Reflex 07/05/2017 N2N/CCD Import Aleida-1 Antibody <0.2 U 10 SS-A/Ro Antibody <0.2 U 11 SS-B/La Antibody <0.2 U 12 Scl-70 (Scleroderma) Antibody <0.2 U 13 Sm (Grewal) IgG Antibody <0.2 U 14 U1-nRNP Antibody <0.2 U 15 Cardiolipin Igg/Igm 07/05/2017 N2N/CCD Import Phospholipid Ab IgG < 9.4 GPL 16 Phospholipid Ab IgM, S < 9.4 MPL 17 Anca AB Ser If 07/05/2017 N2N/CCD Import C-Anca Negative Negative P-Anca Negative Negative 18 Laboratory test 07/05/2017 N2N/CCD Import Angiotensin 38 U/L 8 - 53 19 finding Converting Enzyme Anti-Nuclear Antibody 1.6 U High 20 C Reactive Protein < 1.00 mg/L < 5.00 21 Cyclic Citrullinated Peptide <15.6 U 22 Erythrocyte Sed Rate 7 mm/Hr 0-20 Hla B27 Negative 23 Hla B27 Interp See Comment 24 Immunoglobulin A 232 mg/dL 61 - 356 Immunoglobulin G 722 mg/dL 767 - 1590 25 Immunoglobulin M 89 mg/dL 37 - 286 Interpretation See Comment 26 Rheumatoid Factor <15 Iu/ml <15 27 TSH (Thyroid Stim Horm) 1.79 mcIU/mL 0.34-5.60 Uric Acid 5.5 mg/dL 4.4-7.6 CBS W/Automated 05/25/2017 [facility] White Blood 8.5 10^3/uL N 3.5-10.8 Diff [phone] Count Red Blood Count 4.66 10^6/uL N [...] Blood Cells % 0.1 Basic Metabolic 05/25/2017 [facility] Sodium 138 mmol /L N 133-145 Panel [phone] Potassium 4.1 mmol/L N 3.5-5.0 Chloride 103 mmol/L N 101-111 Co2 Carbon Dioxide 31 mmol/L N 22-32 Anion Gap 4 mmol/L N 2-11 Glucose 101 mg/dL High 70-100 Blood Urea Nitrogen 13 mg/dL N 6-24 Creatinine 0.95 mg/dL N 0.67-1.17 BUN/Creatinine Ratio 13.7 N 8-20 Calcium 9.1 mg/dL N 8.6-10.3 Egfr Non- 81.1 >60 Egfr 104.4 >60 28 Liver Function 05/25/2017 [facility] Total Protein 6.3 g/dL Low 6.4-8.9 Tests [phone] Albumin 4.3 g/dL N 3.2-5.2 Globulin 2.0 g/dL N 2-4 Albumin/Globulin Ratio 2.2 N 1-3 Total Bilirubin 1.10 mg/dL High 0.2-1.0 Direct Bilirubin 0.20 mg/dL High 0.03-0.18 Indirect Bilirubin 0.9 mg/dL N 0.3-1.0 Alkaline Phosphatase 39 U/L N 34-104 Alt 31 U/L N 7-52 Ast 21 U/L N 13-39 CBS W/Automated 07/26/2016 [facility] White Blood 9.8 K/uL N 3.4-10.5 [address] [place] [address] [phone] Red Blood Count 4.76 M/uL N 4.20-5.80 [...] 33.0-73.0 Lymph % 29.1 % N 20.0-42.0 Turner % 8.0 % N 0.0-10.0 Eo% 5.3 % High 0.0-5.0 Bas% 0.4 % N 0.1-1.0 Neut# 5.57 K/uL N 1.8-7.0 Lymph # 2.84 K/uL N 1.0-4.0 Turner # 0.78 K/uL N 0.0-0.8 Eos # 0.52 K/uL High 0.0-0.5 Baso # 0.04 K/uL Low 0.1-0.2 Comprehensive Metabolic 07/26/2016 [facility] Glucose 106 mg/dL N 74-[address] [place] [address] [phone] BUN 12 mg/dL N 7-18 Creatinine 0.9 [...] U/L N 45-117 LDL Cholesterol Profile 07/26/2016 [facility] Cholesterol 142 mg/dL N <200 31 [address] [place] [address] [phone] Triglycerides 93 mg/dL N <150 32 HDL Cholesterol 42 mg/dL N >40 33 LDL-Cholesterol 81 mg/dL N < 100 34 Laboratory test finding 07/26/2016 [facility] Magnesium 2.1 mg/dL N 1.8-2.4 [address] [place] [address] [phone] Basic Metabolic Panel 07/15/2015 [facility] Glucose 103 mg/dL 74-106 [address] [place] [address] [phone] BUN 14 mg/dL 7-18 Creatinine 0.9 mg/dL 0.6-1.3 Glom Filtration Rate, Estimate >60 mL/min >60 If >60 mL/min >60 35 BUN/Creat 15.5 ratio Sodium 141 mmol/L 136-145 Potassium 4.3 mmol/L 3.5-5.1 Chloride 107 mmol/L 98-107 Carbon Dioxide 29 mmol/L 21-32 Anion Gap 5 mEq/L Low 8-16 Calcium 8.7 mg/dL 8.5-10.1 CBC 07/15/2015 [facility] White Blood Count 7.1 K/uL 3.4-10.5 [address] [place] [address] [phone] Red Blood Count 4.66 M/uL 4.20-5.80 Hemoglobin 14.9 gm/dL 12.8-17.0 Hematocrit 43.0 % 38.0-48.0 Mean Cell Volume 92.3 fl 80.0-96.0 Mean Corpuscular HGB 32.0 pg 27.0-33.0 Mean Corpuscular HGB Conc 34.7 g/dL 31.7-36.0 Platelet Count 229 K/uL 150-400 Red Cell Distri Width %CV 13.4 % 11.6-15.8 Mean Platelet Volume 9.6 fL 6.6-10.6 Laboratory test 07/15/2015 [facility] Act Partial 36.4 High 23.9-34.3 [address] [place] [address] Time [phone] Protime 07/15/2015 [facility] Protime 14.5 12.1-14.[address] seconds [place], [place] [id number] [phone] Inr 1.1 0.9-1.1 37 Laboratory test 02/10/2015 [facility] Free T4 0.71 ng /mL N 0.61-1.12 finding [phone] TSH (Thyroid Stimulating Horm) 5.15 ?IU/mL N 0.34-5.60 Comprehensive 02/10/2015 [facility] Sodium 138 mmol/ L N 133-145 Metabolic Panel [phone] Potassium 3.9 mmol/L N 3.5-5.0 Chloride 103 [...] N >60 Egfr 93.6 N >60 38 Laboratory test 08/09/2014 [facility] TSH (Thyroid 2.96 N 0.34-5.60 finding [phone] Stimulating Horm) IU/mL LDL Cholesterol 08/09/2014 [facility] Triglycerides 147 mg/dL N 39 Profile [phone] Cholesterol 147 mg/dL N 40 HDL Cholesterol 38.1 mg/dL N 41 LDL Cholesterol 80 mg/dL N 42 Liver Function 08/09/2014 [facility] Total Protein 6.5 g/dL N 6.4-8.9 Tests [phone] Albumin 4.3 g/dL N 3.2-5.2 Globulin 2.2 g/dL N 2-4 Albumin/Globulin Ratio 2.0 N 1-3 Total Bilirubin 0.30 mg/dL N 0.2-1.0 Direct Bilirubin 0.10 mg/dL N 0.03-0.18 Indirect Bilirubin 0.2 mg/dL Low 0.3-1.0 Alkaline Phosphatase 56 U/L N 34-104 Alt 27 U/L N 7-52 Ast 20 U/L N 13-39 Laboratory test 07/15/2014 [facility] Site [facility] Inr 1.3 finding Laboratory test 07/12/2014 [facility] Inr 1.39 High 0.85-1. finding [phone] PT W/Inr 07/05/2014 [facility] Inr 3.51 High 0.85- 1. [phone] PT W/Inr 06/20/2014 [facility] Inr 3.51 High 0.85- 1. [phone] Laboratory test 06/14/2014 [facility] Inr 2.52 High 0.85-1. finding [phone] Lipid Profile 06/14/2014 [facility] Triglycerides 126 mg/dL N 43 (Trig/Chol/HDL) [phone] Cholesterol 204 mg/dL N 44 HDL Cholesterol 45.1 mg/dL N 45 LDL Cholesterol 134 mg/dL N 46 Liver Function 06/14/2014 [facility] Total Protein 6.8 g/dL N 6.4-8.9 Panel [phone] Albumin 4.4 g/dL N 3.2-5.2 Globulin 2.4 g/dL N 2-4 Albumin/Globulin Ratio 1.8 N 1-3 Total Bilirubin 0.50 mg/dL N 0.2-1.0 Direct Bilirubin 0.10 mg/dL N 0.03-0.18 Indirect Bilirubin 0.4 mg/dL N 0.3-1.0 Alkaline Phosphatase 48 U/L N 34-104 Alt 28 U/L N 7-52 Ast 22 U/L N 13-39 Laboratory 06/14/2014 [facility] TSH (Thyroid 3.22 N 0.34-5.60 test finding [phone] Stimulating IU/mL Horm) PT W/Inr 05/23/2014 [facility] Inr 2.96 High 0.85- 1.06 [phone] PT W/Inr 05/09/2014 [facility] Inr 2.80 High 0.85- 1.06 [phone] PT W/Inr 05/02/2014 [facility] Inr 2.80 High 0.85- 1.06 [phone] PT W/Inr 04/18/2014 [facility] Inr 3.06 High 0.85- 1.06 [phone] PT W/Inr 04/08/2014 [facility] Inr 3.85 High 0.85- 1.06 [phone] PT W/Inr 04/01/2014 [facility] Inr 1.30 High 0.85- 1.06 [phone] Laboratory 03/28/2014 [facility] Inr 0.98 N 0.85- 1.06 47, test finding [phone] PT W/Inr 03/21/2014 [facility] Inr 3.02 High 0.85- 1.06 [phone] PT W/Inr 03/13/2014 [facility] Inr 2.00 High 0.85- 1.06 [phone] Laboratory 02/18/2014 [facility] Inr 0.95 0.85- 1.06 test finding [phone] PT W/Inr 02/07/2014 [facility] Inr 2.84 High 0.85- 1.06 [phone] Protime 01/31/2014 [facility] Inr 2.32 High 0.85- 1.06 [phone] PT W/Inr 01/24/2014 [facility] [employer] [...] labs 2 days before the visit 9 Normal Range 180 to 914 Indeterminate Range 145 to 180 Deficient Range <145 10 REFERENCE VALUE <1.0 (Negative) Test Performed by: [address] [id number] 11 REFERENCE VALUE <1.0 (Negative) 12 REFERENCE VALUE <1.0 (Negative) 13 REFERENCE VALUE <1.0 (Negative) 14 REFERENCE VALUE <1.0 (Negative) 15 REFERENCE VALUE <1.0 (Negative) 16 REFERENCE VALUE <15.0 (Negative) Test Performed by: [facility] [place] [id number] 17 REFERENCE VALUE <15.0 (Negative) 18 Negative for cANCA and pANCA patterns by immunofluorescence. ADDITIONAL INFORMATION This test was developed and its performance characteristics determined by [facility] in a manner consistent with CLIA requirements. This test has not been cleared or approved by the U.S. Food and Drug Administration. Test Performed by: [facility] [place] [id number] Test Performed by: [address] [id number] 20 Interpretation: Weak Positive (1.1-2.9) REFERENCE VALUE <=1.0 (Negative) 21 Acute inflammation: >10.00 22 REFERENCE VALUE <20.0 (Negative) 23 REFERENCE VALUE Not Applicable 24 RESULT: HLA-B27 antigen was not detected. ADDITIONAL INFORMATION Method: Flow Cytometry Performing Laboratory CLIA# [id number] Test Performed by: [place] [address] 25 Test Performed by: [place] [address] 26 Tests for antibodies to dsDNA and JERICA antigens are not performed automatically unless the SHELBY result is > or= 3.0 U. Studies performed at [facility] indicate that positive SHELBY results <3.0 U are rarely accompanied by positive second order tests. Test Performed by: [place] [address] 27 Test Performed by: [place] [address] 28 Because ethnic data is not always [...] information may be found at www.kdoqi.org. 36 Is patient on heparin protocol? N Is patient on anticoagulants? Unknown QUERY: Anticoagulant Therapy? QUERY: Date of Last Dose: QUERY: Time of Last Dose: 37 THERAPEUTIC INR RANGE: 2.0 - 3.0 DVT, Pulmonary embolus, prophylaxis against venous thrombosis or systemic embolization in high risk patients. 2.5 - 3.5 Mechanical heart valves 38 Because ethnic data is not always [...] accurately. Procedures Date Code Description Status 12/19/2018 53619 EKG-Tracing And Report Completed 11/10/2017 66415 EKG-Tracing And Report Completed 06/23/2017 61342 Echocardiogram Complete Completed 07/26/2016 16594 EKG-Tracing And Report Completed 07/28/2015 89440 Application long arm splint Completed 07/18/2015 93019 Reinsertion of ruptured biceps or triceps tendon distal Completed w/wo tend 07/18/2015 78403 Reinsertion of ruptured biceps or triceps tendon distal Completed w/wo tend 07/18/2015 61345 Reinsertion of ruptured biceps or triceps tendon distal Completed w/wo tend 07/15/2015 61744 EKG Interpretation And Report Only Completed 07/07/2015 91999 EKG-Tracing And Report Completed 05/23/2015 29057 EKG-Tracing And Report Completed 04/16/2015 74654 EKG-Tracing And Report Completed 01/06/2015 85056 EKG-Tracing And Report Completed 12/04/2014 88640 EKG Interpretation And Report Only Completed 12/04/2014 80640 EKG Interpretation And Report Only Completed 12/04/2014 57503 Cardioversion External Completed 11/19/2014 30995 EKG-Tracing And Report Completed 11/08/2014 09506 EKG-Tracing And Report Completed 10/02/2014 86205 EKG-Tracing And Report Completed 09/05/2014 74138 Event Monitor Inter/Review Only Completed 09/05/2014 12555 EKG-Tracing And Report Completed 07/02/2014 80847 EKG-Tracing And Report Completed 06/21/2014 22560 Holter Monitor 24HR Inter/Report Completed 06/21/2014 53737 Holter Monitor 24HR Inter/Report Completed 06/17/2014 63095 Cardioversion External Completed 06/17/2014 39283 EKG-Tracing And Report Completed 06/17/2014 39025 EKG-Tracing And Report Completed 06/17/2014 38210 EKG Interpretation And Report Only Completed 06/10/2014 08868 EKG-Tracing And Report Completed 04/29/2014 44462 EKG-Tracing And Report Completed 11/16/2013 65121 Echocardiogram Complete Completed 11/01/2013 28979 EKG-Tracing And Report Completed 05/06/201082666 Asp./Injection major joint Completed 04/07/201002697 Asp./Injection major joint Completed 07/04/2006 47572136 Colonoscopy Completed Encounters Type Date Location Provider [...] bronchitis, unspecified Office Visit 11/10/2017 Cardiology Ingrid Sutherlnad Z01.810 Encounter for 8:40a Office RALEIGH Cervantes, preprocedural SENIOR DESIGNER/ART DIRECTOR cardiovascular examination I34.0 Nonrheumatic mitral (valve) insufficiency I48.1 Persistent atrial fibrillation I10 Essential (primary) hypertension E78.2 Mixed hyperlipidemia Office Visit 06/22/2017 Cardiology Ingrid Sutherland I48.1 Persistent atrial 8:40a Office RALEIGH Cervantes, fibrillation SENIOR DESIGNER/ART DIRECTOR I10 Essential (primary) hypertension E78.2 Mixed hyperlipidemia I34.0 Nonrheumatic mitral (valve) insufficiency Office Visit 12/29/2016 Cardiology Ingrid Sutherland I48.1 Persistent atrial 8:00a Office Helen, MSN, fibrillation SENIOR DESIGNER/ART DIRECTOR I10 Essential (primary) hypertension E78.2 Mixed hyperlipidemia I34.0 Nonrheumatic mitral (valve) insufficiency Office Visit 07/26/2016 8:20a Cardiology Office Nikita Grewal I48.1 Persistent atrial MD fibrillation I10 Essential (primary) hypertension E78.2 Mixed hyperlipidemia Z79.01 skilled nursing (current) use of anticoagulants Office Visit 01/23/2016 8:20a Cardiology Office Fabi Medrano I48.1 Persistent atrial A., ANP fibrillation I10 Essential (primary) hypertension E78.2 Mixed hyperlipidemia Z79.01 skilled nursing (current) use of anticoagulants Office Visit 09/10/2015 Orthopaedic Geronimo S46.201D Unsp injury of 1:00p Office Bindu Elizabeth musc/fasc/tend prt biceps, right arm, subs Office Visit 09/08/2015 Cardiology Fabi Medrano I48.1 Persistent atrial 8:30a Office A., ANP fibrillation I10 Essential (primary) hypertension E78.2 Mixed hyperlipidemia 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 Z01.810 Encounter for preprocedural cardiovascular examination Office Visit 07/16/2015 11:30a Cardiology Office Fabi Medrano I48.1 Persistent atrial A., ANP fibrillation I10 Essential (primary) hypertension E78.2 Mixed hyperlipidemia 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, ANP fibrillation I10 Essential (primary) hypertension E78.2 Mixed hyperlipidemia 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 F51.8 Oth sleep disord not due to a sub or known physiol cond Office Visit 04/16/2015 3:00p Cardiology Office Fabi Medrano I48.1 Persistent atrial A., ANP fibrillation I10 Essential (primary) hypertension E78.2 Mixed hyperlipidemia 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 F51.8 Oth sleep disord not due to a sub or known physiol cond Office Visit 01/06/2015 8:50a Cardiology Office Fabi eMdrano 427.31 Atrial A., ANP Fibrillation 401.1 Hypertension Benign 272.2 Hyperlipidemia Mixed V58.61 Anticoagulants [place] [employer] (Current) Use Encounter 307.47 Sleep Stage Or Sleep Arousal Dysfunction Other Office Visit 11/08/2014 9:10a Cardiology Office Fabi Medrano 427.31 Atrial A., ANP Fibrillation 401.1 Hypertension Benign 272.2 Hyperlipidemia Mixed V58.61 Anticoagulants [employer] (Current) Use Encounter 307.47 Sleep Stage Or Sleep Arousal Dysfunction Other Office Visit 10/02/2014 Cardiology Ingrid Sutherland 427.31 Atrial 9:20a Office RALEIGH Cervantes, Fibrillation SENIOR DESIGNER/ART DIRECTOR 427.32 Atrial Flutter 401.1 Hypertension Benign 272.2 Hyperlipidemia Mixed V58.61 Anticoagulants [employer] (Current) Use Encounter 307.47 Sleep Stage Or Sleep Arousal Dysfunction Other Office Visit 09/05/2014 Cardiology Ingrid Sutherland 427.31 Atrial 8:40a Office RALEIGH Cervantes, Fibrillation SENIOR DESIGNER/ART DIRECTOR 427.32 Atrial Flutter 401.1 Hypertension Benign 272.2 Hyperlipidemia Mixed Office Visit 07/18/2014 9:30a Cardiology Office Avel Negron 427.31 Chari Elias MD, PhD Fibrillation 401.1 Hypertension Benign 272.2 Hyperlipidemia Mixed 427.32 Atrial Flutter Office Visit 07/02/2014 9:00a Cardiology Office Fabi Medrano 427.31 Atrial A., ANP Fibrillation 401.1 Hypertension Benign 272.2 Hyperlipidemia Mixed 307.47 Sleep Stage Or Sleep Arousal Dysfunction Other V58.61 Anticoagulants [facility]dc (Current) Use Encounter Office Visit 06/10/2014 3:10p Cardiology Office Fabi Medrano 427.31 Atrial A., ANP Fibrillation 401.1 Hypertension Benign V17.49 Family HX Of Other Cardiovascular Diseases 272.2 Hyperlipidemia Mixed 307.47 Sleep Stage Or Sleep Arousal Dysfunction Other Office Visit 04/29/2014 2:50p Cardiology Office Avel Negron.José Elias MD, PhD Fibrillation 401.1 Hypertension Benign V17.49 Family HX Of Other Cardiovascular Diseases 272.2 Hyperlipidemia Mixed Office Visit 03/29/2014 2:30p Cardiology Office Avel Negron.José Elias MD, PhD Fibrillation 415.19 Pulmonary Embolism [...] Office Visit 11/01/2013 8:40a Cardiology Office Avel Negron.José Elias MD, PhD Fibrillation 453.42 DVT/Embolism Distal Lower Extremity 401.1 Hypertension Benign V17.49 Family HX Of Other Cardiovascular Diseases Office Visit 06/07/2013 10:30a Surgical Tanner, 709.9 Skin & Office Marley Almaraz M.D. Tissue Disorders Unspec Plan of Treatment Future Appointment(s):06/15/2019 9:40 am - Jayashree Orourke PA at Cardiology [id number]/19/2018 - Nikita Grewal MDI48.1 Persistent atrial fibrillationComments:Rate [...]
[2019-01-18 07:21] VITALS: BP 136/88
--- NOTE | 2019-01-18 07:43 | ED ---
Throat Pain/Nasal Congestion - HPI Summary HPI Summary: 63 yr old male with the complaint of bilateral frontal and maxillary sinus pain , fever up to 102 last night, right ear ache. 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 He denies change in vision speech, hearing. Symptoms are moderate. - History of Current Complaint Chief Complaint: UCGeneralIllness Time Seen by Provider: 01/18/19 07:27 - Allergies/Home Medications Allergies/Adverse Reactions: Allergies Allergy/AdvReac Type Severity Reaction Status Date / Time adhesive tape Allergy Rash Verified 12/18/18 09:25 amoxicillin Allergy See Comment Verified 12/18/18 09:25 latex Allergy Rash Verified 12/18/18 09:25 Home Medications: Home Medications Escitalopram Oxalate [Lexapro 10 mg] 10 mg PO DAILY 01/18/19 [History Confirmed 01/18/19] PMH/Surg Hx/FS Hx/Imm Hx Endocrine/Hematology History: Denies: Hx Diabetes, Hx Thyroid Disease Cardiovascular History: Reports: Hx Deep Vein Thrombosis - aug 2013, Hx Hypertension, Other Cardiovascular Problems/Disorders - CHOLESTEROL CONTROL WITH MEDS Respiratory History: Reports: Hx Pulmonary Embolism - DVT RIGHT LOWER LEG, 2 SMALL ONES IN THE LUNGS,2013 ON XARELTO, Hx Sleep Apnea, Other Respiratory Problems/Disorders - PNEUMONIA 2 YEARS AGO, STOPPED THE CPAP, WILL START AGAIN AFTER SURGERY Denies: Hx Asthma, Hx Chronic Obstructive Pulmonary Disease (COPD) GI History: Denies: Hx Ulcer History: Reports: Hx Kidney Infection - AGE 12 - FREQUENT INFECTIONS, UNKNOWN ETIOLOGY Musculoskeletal History: Reports: Hx Arthritis - hands, knees, shoulders, Hx Rheumatoid Arthritis, Hx Back Problems - Injury 2002, more pain since 2009 Sensory History: Reports: Hx Contacts or Glasses - reading, Hx Hearing Problem - slight, does not wear his hearing aids due to tinnitis Denies: Hx Hearing Aid Opthamlomology History: Reports: Hx Contacts or Glasses - reading Neurological History: Reports: Other Neuro Impairments/Disorders - tinnitis Psychiatric History: Reports: Hx Depression - on Cymbalta - Surgical History Surgery Procedure, Year, and Place: HERNIA REPAIR 1982; sinus polyp removed~ 2011. bicep tendon repair right arm 2014 Hx Anesthesia Reactions: No - Immunization History Date of Tetanus Vaccine: Unknown Infectious Disease History: Yes Infectious Disease History: Reports: Hx Shingles Denies: Hx Hepatitis, Hx Human Immunodeficiency Virus (HIV), History Other Infectious Disease, Traveled Outside the [place] in Last 30 Days - Family History Known Family History: Positive: Cardiac Disease - Dad and brothers., Respiratory Disease - Dad with COPD. - Social History Occupation: Employed Full-time Lives: With Family Alcohol Use: Occasionally Alcohol Amount: WEEKENDS Substance Use Type: Reports: None Substance Use Comment - Amount & Last Used: tramodol Smoking Status (MU): Former Smoker Type: Cigarettes Amount Used/How Often: 2 PPD / CURRENTLY CHEWING TOBACCO Length of Time of Smoking/Using Tobacco: 40 yrs Have You Smoked in the Last Year: No Review of Systems Positive: Fever Negative: Photophobia, Blurred Vision, Diplopia, Drainage, Erythema Positive: Ear Ache, Other - sinus pain Negative: Shortness Of Breath, Cough All Other Systems Reviewed And Are Negative: Yes Physical Exam Triage Information Reviewed: Yes Vital Signs On Initial Exam: Initial Vitals Temp Pulse Resp BP Pulse Ox 99.5 F 93 18 136/88 97 01/18/19 07:15 01/18/19 07:15 01/18/19 07:15 01/18/19 07:15 01/18/19 07:15 Vital Signs Reviewed: Yes Appearance: Positive: Well-Appearing, No Pain Distress Skin: Positive: Warm, Skin Color Reflects Adequate Perfusion Head/Face: Positive: Normal Head/Face Inspection Eyes: Positive: EOMI, BILLY ENT: Positive: Pharyngeal erythema, TM red - right with redness, and loss of landmarks., Sinus tenderness - bilateral Neck: Positive: Supple, Nontender Respiratory/Lung Sounds: Positive: Clear to Auscultation, Breath Sounds Present Cardiovascular: Positive: RRR. Negative: Murmur Abdomen Description: Negative: Distended Musculoskeletal: Positive: Strength/ROM Intact Neurological: Positive: Sensory/Motor Intact, Alert, Oriented to Person Place, Time, CN Intact II-III, Normal Gait, Speech Normal Psychiatric: Positive: Normal - [place] Coma Scale Best Eye Response: 4 - Spontaneous Best Motor Response: 6 - Obeys Commands Best Verbal Response: 5 - Oriented Coma Scale Total: 15 Diagnostics - Vital Signs Vital Signs Temp Pulse Resp BP Pulse Ox 01/18/19 07:15 99.5 F 93 18 136/88 97 - Laboratory Lab Statement: Any lab studies that have been ordered have been reviewed, and results considered in the medical decision making process. EENT Course/Dx - Course Course Of Treatment: 63 yr old male with right otitis media, and sinusitis. Rx with doxy. - Diagnoses Provider Diagnoses: Sinusitis, Right otitis media Discharge - Sign-Out/Discharge Documenting (check all that apply): Patient Departure All imaging exams completed and their final reports reviewed: No Studies - Discharge Plan Condition: Good Disposition: HOME Prescriptions: Doxycycline Monohydrate 100 mg PO BID #20 capsule Patient Education Materials: Sinusitis (ED), Ear Infection (ED) Referrals: Glenn Hewitt MD [Primary Care Provider] - 2 Days - Billing Disposition and Condition Condition: GOOD Disposition: Home
== END 2019-01-18 07:50 | disposition home or self-care (01) ==
LOC: UCCORT 07:01
DX: J32.9 Chronic sinusitis, unspecified (principal); H66.91 Otitis media, unspecified, right ear; Z88.0 Allergy status to penicillin; I10 Essential (primary) hypertension; Z86.718 Personal history of other venous thrombosis and embolism; Z86.711 Personal history of pulmonary embolism; Z79.01 Long term (current) use of anticoagulants; Z87.891 Personal history of nicotine dependence
CPT/HCPCS: 99212; G0463

== ENCOUNTER 2019-06-02 09:10 | Emergency (ER) | payer BC ==
--- NOTE | 2019-06-02 10:02 | UC ---
Respiratory Complaint HPI - HPI Summary HPI Summary: 63 y/o male presents to the urgent care c/o nasal congestion w/ yellowish nasal discharge, PND, productive cough with yellow phlegm, wheezing that started Tuesday05/30/2019. Pt reports he was celebrating Thanksgiving in [place] when wheezing developed. He drove last night and has only slept for 1hr. He has not taken his BP medication yet. He decided to come here first because he thinks he has pneumonia since he had it in the past and it feels the same. Pt also use the albuterol inhaler this morning and has not taken any other medication to alleviate symptoms. Pt states body aches. Pt denies fever, chills, SOB, chest pain, BOYER, dizziness, visual changes, abdominal pain, N/V/D. - History of Current Complaint Chief Complaint: UCRespiratory Stated Complaint: COUGH Time Seen by Provider: 06/02/19 10:00 Hx Obtained From: Patient Onset/Duration: Gradual Onset, Lasting Days - 3 days, Still Present, Worse Since - last night Timing: Intermittent Episodes Severity Initially: Mild Severity Currently: Moderate Pain Intensity: 3 Pain Scale Used: 0-10 Numeric Character: Cough: Productive, Sputum Description: - yellowish Aggravating Factors: Recumbent Position Alleviating Factors: Bronchodilator - albuterol inhaler Associated Signs And Symptoms: Positive: Wheezing - mild, URI, Nasal Congestion , Sinus Discomfort. Negative: Fever, Chills, Dizziness - Risk Factors Pulmonary Embolism Risk Factors: Negative Cardiac Risk Factors: Hypertension Pseudomonas Risk Factors: Negative Tuberculosis Risk Factors: Negative - Allergies/Home Medications Allergies/Adverse Reactions: Allergies Allergy/AdvReac Type Severity Reaction Status Date / Time adhesive tape Allergy Rash Verified 06/02/19 09:46 amoxicillin Allergy See Comment Verified 06/02/19 09:46 latex Allergy Rash Verified 06/02/19 09:46 Home Medications: Home Medications Albuterol HFA INHALER* [Ventolin HFA Inhaler*] 1 puff INH Q4H PRN 06/02/19 [ History Confirmed 06/02/19] PMH/Surg Hx/FS Hx/Imm Hx Previously Healthy: Yes Endocrine History: Dyslipidemia Cardiovascular History: Cardiac Disease - a-fib, Hypertension Other Neurological History: neuropathy - Surgical History Surgical History: Yes Surgery Procedure, Year, and Place: HERNIA REPAIR 1982; sinus polyp removed~ 2011. bicep tendon repair right arm 2014 - Family History Known Family History: Positive: Cardiac Disease - Dad and brothers., Hypertension, Respiratory Disease - Dad with COPD. - Social History Alcohol Use: Occasionally Alcohol Amount: WEEKENDS Substance Use Type: Prescribed Substance Use Comment - Amount & Last Used: tramodol Smoking Status (MU): Former Smoker Type: Cigarettes, Smokeless Tobacco Amount Used/How Often: CURRENTLY CHEWING TOBACCO 1 can monthly Length of Time of Smoking/Using Tobacco: 40 yrs Have You Smoked in the Last Year: No When Did the Patient Quit Smoking/Using Tobacco: 1989 - Immunization History Most Recent Influenza Vaccination: 2012 Most Recent Tetanus Shot: 2009 Most Recent Pneumonia Vaccination: never Review of Systems All Other Systems Reviewed And Are Negative: Yes Constitutional: Positive: Fatigue, Other - body aches Skin: Positive: Negative Eyes: Positive: Negative ENT: Positive: Nasal Discharge - yellowish, Sinus Congestion, Other - PND Respiratory: Positive: Cough - productive, Other - wheezing Cardiovascular: Positive: Negative Gastrointestinal: Positive: Negative Genitourinary: Positive: Negative Motor: Positive: Negative Neurovascular: Positive: Negative Musculoskeletal: Positive: Myalgia Neurological: Positive: Negative Psychological: Positive: Negative Is Patient Immunocompromised?: No Physical Exam - Summary Physical Exam Summary: Vital Signs Reviewed: Yes General: well developed, well nourished male sitting in the examining table w/o any apparent distress Eyes: Positive: Conjunctiva Clear - PERRLA, EOMI, fundi grossly normal ENT: Positive: Normal ENT inspection, Hearing grossly normal, Pharynx normal, Nasal congestion - edematous and erythematous nasal mucosa, Nasal drainage - yellowish drainage, TMs normal. Negative: Tonsillar swelling, Tonsillar exudate Neck: Positive: Supple, Nontender, No Lymphadenopathy Respiratory: no orthopnea or dyspnea. Able to speak in full sentences, no retractions or accessory muscle use, no tripod position, stridor, or head bobbing. Positive breath sounds bilaterally. diffuse scattered wheezing and rhonchi on b/L lungs, no crackles or rales. Cardiovascular: Positive: RRR, No Murmur, Pulses Normal, Brisk Capillary Refill Abdomen Description: Positive: Nontender, No Organomegaly, Soft. Negative: CVA Tenderness (R), CVA Tenderness (L) Bowel Sounds: Positive: Present Musculoskeletal Exam: Normal Musculoskeletal: Positive: Strength Intact, ROM Intact, No Edema Neurological Exam: Normal Psychological Exam: Normal Skin Exam: Normal Triage Information Reviewed: Yes Vital Signs: Initial Vital Signs Temp 98.1 F 06/02/19 09:49 Pulse 101 06/02/19 09:49 Resp 17 06/02/19 09:49 BP 171/115 06/02/19 09:49 Pulse Ox 99 06/02/19 09:49 Respiratory Course/Dx - Course Course Of Treatment: 63 y/o male presents to the urgent care c/o nasal congestion w/ yellowish nasal discharge, PND, productive cough with yellow phlegm, wheezing that started Tuesday05/30/2019. Pt reports he was celebrating [place] in [place] when wheezing developed. He drove last night and has only slept for 1hr. He has not taken his BP medication yet. He decided to come here first because he thinks he has pneumonia since he had it in the past and it feels the same. Pt also use the albuterol inhaler this morning and has not taken any other medication to alleviate symptoms. Pt states body aches. Pt denies fever, chills, SOB, chest pain, BOYER, dizziness, visual changes, abdominal pain, N/V/D. Hx obtained. Pt w/ B/L lungs scattered wheezing and rhonchi on examination. O2Sat:99%.Rapid Influenza A&B: negative. Chest X-ray ordered: impression: no acute disease observed. Pt given at the clinic Prednisone 60 mg PO and Duoneb treatment. Pt tolerated well medications and her lungs improved. Pt states feeling better. Pt will be tx w/ Rx Doxycycline PO , Prednisone taper dose and Inhaler. Strongly advised to f/u with her PCP for further management. He also has elevated BP today, advised to decrease salt in his diet and monitor BP, if it continues to be elevated to f/u with her PCP. Pt understood and agreed with D/C instructions and left the clinic hemodynamically stable. - Differential Dx/Diagnosis Differential Diagnosis/HQI/PQRI: Asthma, Bronchitis, Exacerbation Of COPD, Influenza, Lower Resp Infection, Sinusitis, Other - pneumonia Provider Diagnosis: Acute bronchitis, Wheezing, Uncontrolled hypertension Discharge ED - Sign-Out/Discharge Documenting (check all that apply): Patient Departure - D/C home All imaging exams completed and their final reports reviewed: Yes - Discharge Plan Condition: Stable Disposition: HOME Prescriptions: Albuterol/Ipratropium NEB.JANIA* [Duoneb (Albuterol 2.5 MG/Ipratropium 0.5 MG)] 1 neb INH Q6H PRN #1 neb.jania PRN Reason: Wheezing DOXYcycline CAP(*) [DOXYcycline 100MG CAP(*)] 100 mg PO BID #20 cap predniSONE TAB* [Deltasone 20 MG TAB*] 20 mg PO DAILY #8 tab Patient Education Materials: Acute Bronchitis (ED), Wheezing (ED) Referrals: Glenn Hewitt MD [Primary Care Provider] - 3 Days Additional Instructions: 1- Take Prednisone PO taper dose as directed starting tomorrow. First loading dose given today. Take Yogurts w/ probiotics or Culturelle to protect your GI system. Rapid Influenza A&B: negative 2-Use the Duoneb nebulizer treatment to alleviate SOB, and wheezing as directed . Increase fluid intake, rest and eat well. 3- If symptoms do not improve or worsen or your develop SOB with fever and severe wheezing please go immediately to the ER further evaluation and treatment. 4- F/u with your PCP in 3 days for further management ypou may be developing COPD 5-Your BP is elevated today. Please take your BP medications and decrease salt in your diet, monitor BP and if it continues to be elevated please f/u with your PCP for further management. If you develop chest pain, dizziness, visual disturbances, SOB, or severe BOYER please go immediately to the ER for further management - Billing Disposition and Condition Condition: STABLE Disposition: Home
[2019-06-02] MEDS ORDERED: predniSONE TAB* 20 MG PO ONE (10:15)
[2019-06-02] MEDS ORDERED: Albuterol/Ipratropium NEB.SOL* Albuterol 2.5 MG/Ipratropium 0.5 MG 3 ML INH ONE (10:15)
[2019-06-02 10:24] VITALS: BP 143/100
[2019-06-02 10:29] LABS: Influenza A Molecular NEGATIVE (Negative); Influenza B Molecular NEGATIVE (Negative)
== END 2019-06-02 10:55 | disposition home or self-care (01) ==
LOC: UCCORT 09:10
DX: J20.9 Acute bronchitis, unspecified (principal); R06.2 Wheezing; I10 Essential (primary) hypertension; R09.89 Other specified symptoms and signs involving the circulatory and respiratory systems; G62.9 Polyneuropathy, unspecified; Z87.891 Personal history of nicotine dependence; Z91.09 Other allergy status, other than to drugs and biological substances; Z88.0 Allergy status to penicillin; Z91.040 Latex allergy status
CPT/HCPCS: 71046; 99212; A9270-GY; G0463; J7512